=== PATIENT | female | born 1975 | race Caucasian/White ===

== ENCOUNTER 2020-09-04 08:28 | Emergency (ER) | payer MEDICARE, MEDICAID ==
[2020-09-04] MEDS ORDERED: DEXAMETHASONE 10 MG/ML VIAL PO STA (09:08)
[2020-09-04] MEDS ORDERED: CHERRY SYRUP 10 ML UDC PO ONE (09:08)
[2020-09-04] MEDS ORDERED: KETOROLAC 60 MG/2 ML VIAL IM STA (09:08)
[2020-09-04 10:04] VITALS: BP 108/58
--- NOTE | 2020-09-04 10:05 | XRAY Report ---
PROCEDURE: Knee 4 View RT INDICATIONS: locking/giving out/swelling TECHNIQUE: 4 views of the right knee(s) were acquired. COMPARISON: None. FINDINGS: Bones: No fractures or dislocations. No suspicious bony lesions. On the sunrise view, there is mil d osteophyte formation seen along the margins of the patella. Soft tissues: There is a small joint effusion. No suspicious soft tissue calcifications. IMPRESSION: Small joint effusion, without an acute bony abnormality seen. If there is strong clinical concern for internal derangement of the knee, please consider a dedicated , scheduled knee MRI for further evaluation (assuming that there is no contraindication). Reviewed by: Eugene Lu MD on 09/04/2020 9:04 AM NEL Approved by: Eugene Lu MD on 09/04/2020 9:04 AM NEL Station ID: [id number]
--- NOTE | 2020-09-04 10:34 | ED Physician Documentation ---
PD HPI LOWER EXT INJURY - Stated complaint Stated Complaint: RT KNEE PX - Chief complaint Chief Complaint: Ext Problem - History obtained from History obtained from: Patient, Family - History of Present Illness PD HPI LOW EXT INJURY LOCATION: Right, Knee Type of injury: Fall Where injury occurred: Home Timing - onset: How many weeks ago (2) Timing - duration: Weeks (2) Timing - details: Abrupt onset, Still present Improved by: Rest, Immobilization Worsened by: Moving, Palpating Associated symptoms: Swelling Contributing factors: Prior ortho surgery. No: Anticoagulated Similar symptoms before: Diagnosis (knee injury) Recently seen: Not recently seen - Additional information Additional information: 45-year-old female with a history of rheumatoid arthritis and a rheumatoid spine has peripheral neuropathy and injuries to her lower extremity secondary to her neuropathy resulting in an antalgic gait. 3 to 4 weeks ago the patient had a fall in her home injuring her right knee. She landed across the patella. Since that time she has had some difficulty walking she is noted some swelling to her knee and to her entire leg on the right side. She has pain with ambulation and standing and pain at rest. PD PAST MEDICAL HISTORY - Past Medical History Other Past Medical History: neuropathy - Past Surgical History Ortho: Spine surgery - Present Medications Home Medications: Ambulatory Orders Medication Instructions Recorded Confirmed HYDROcod/ACETAM 5/325 [[place] 5/325] 1 - 2 tablet PO Q6H PRN #14 tablet 09/04/20 Pregabalin [Lyrica] 1 tab PO TID 09/04/20 09/04/20 - Allergies Allergies/Adverse Reactions: Allergies Allergy/AdvReac Type Severity Reaction Status Date / Time No Known Drug Allergies Allergy Verified 09/04/20 08:44 - Social History Does the pt smoke?: Yes Smoking Status: Current every day smoker Does the pt drink ETOH?: Yes Does the pt have substance abuse?: No PD ED PE NORMAL - Vitals Vital signs reviewed: Yes (normal ) - General General: Alert and oriented X 3, No acute distress, Well developed/nourished - HEENT HEENT: Atraumatic, PERRL, EOMI - Respiratory Respiratory: No respiratory distress - Derm Derm: Normal color, Warm and dry, No rash - Extremities Extremities: No deformity, Other (There is swelling to the right leg in general this is mild but present. There is tenderness to palpation over the patella and the medial joint space. Ligaments are stable to testing. There is no palpable effusion. The range of motion is limited secondary to pain the distal n/v intact.) - Neuro Neuro: Alert and oriented X 3, teacher lip reading 2-12 intact, No motor deficit, No sensory deficit, Normal speech Eye Opening: Spontaneous Motor: Obeys Commands Verbal: Oriented GCS Score: 15 - Psych Psych: Normal mood, Normal affect Results - Vitals Vitals: Vital Signs - 24 hr 09/04/20 09/04/20 08:40 10:03 Temperature 36.6 C Heart Rate 94 65 Respiratory 16 16 Rate Blood Pressure 112/74 108/58 L O2 Saturation 96 99 Oxygen O2 Source Room air - Rads (name of study) knee R Radiology: Prelim report reviewed (Impression: Small joint effusion, without an acute bony abnormality seen.), EMP read indepedently, See rad report duplex viens right Radiology: Prelim report reviewed (Impression: No findings of deep venous thrombosis are seen.), EMP read indepedently, See rad report PD MEDICAL DECISION MAKING - ED course Complexity details: reviewed results, re-evaluated patient, considered differential, d/w patient, d/w family ED course: 45-year-old female disabled by rheumatoid arthritis of the spine has now fallen injured her right knee she has a joint effusion pain on weightbearing and a sensation of locking and giving away. Ligaments are stable to testing I suspect she may have meniscus injury and she is given a dose of dexamethasone and Toradol she is placed into a knee immobilizer and onto a walker and will have follow-up with orthopedics. Departure - Departure Disposition: 01 Home, Self Care Clinical Impression: Joint effusion of knee Qualifiers: Laterality: right Qualified Code(s): M25.461 - Effusion, right knee Condition: Stable Instructions: ED Meniscal Injury Knee Poss, ED Effusion Knee Follow-Up: Santana Enamorado MD [Provider Admit Priv/Credential] - Prescriptions: HYDROcod/ACETAM 5/325 [[place] 5/325] 1 - 2 tablet PO Q6H PRN #14 tablet PRN Reason: Pain Discharge Date/Time: 09/04/20 11:54
--- NOTE | 2020-09-04 12:18 | Ultrasound Report ---
PROCEDURE: Duplex Ext Veins Right INDICATIONS: swelling pain palpable vein TECHNIQUE: Real-time imaging, as well as color and pulse Doppler interrogation, were performed of the lower extr emity deep veins from the inguinal ligament to the popliteal fossa. COMPARISON: Correlation is made with the accompanying knee plain films, 09/04/2020. FINDINGS: The deep veins are normally compressible, and free of intraluminal thrombus. Color and pu lse Doppler demonstrate normal phasic intraluminal flow. There is normal augmentation response to di stal compression maneuver. IMPRESSION: No findings of deep venous thrombosis are seen. Note: Concordant preliminary findings given by the leak detection engineer upon the completion of the examination to Dr. Guy at 11:15 AM on 09/04/2020. Reviewed by: Eugene Lu MD on 09/04/2020 11:16 AM NEL Approved by: Eugene Lu MD on 09/04/2020 11:16 AM NEL Station ID: [id number]
== END 2020-09-04 11:54 | disposition home or self-care (01) ==
LOC: ED 08:28
DX: M25.561 Pain in right knee (principal); M25.461 Effusion, right knee; Z91.81 History of falling; M45.9 Ankylosing spondylitis of unspecified sites in spine; G62.9 Polyneuropathy, unspecified; F17.200 Nicotine dependence, unspecified, uncomplicated
CPT/HCPCS: 73564; 93971; 96372; 99281; 99283; A9270

== ENCOUNTER 2020-09-15 08:32 | Emergency (ER) | payer MEDICARE, MEDICAID ==
[2020-09-15] MEDS ORDERED: predniSONE 20 MG TABLET PO STA (10:15)
--- NOTE | 2020-09-15 10:17 | ED Physician Documentation ---
History of Present Illness - Stated complaint Stated Complaint: PX FINGERS RT/LT - Chief complaint Chief Complaint: Ext Problem - History obtained from History obtained from: Patient - Additonal information Additional information: Patient comes emergency department chief complaint of rheumatoid arthritis flare. She states that for the last several days, her fingers have been swollen and painful and she cannot bend or straighten them completely. Patient has a history of rheumatoid arthritis, and has been on a variety of medications in the past, including Remicade, but this was in [place] where she lived previously. Patient states she has moved here recently has not been able to yet get reestablished with primary care or rheumatology. No fevers or chills. No shortness of breath. No other complaints at this time. Review of Systems Ten Systems: 10 systems reviewed and negative Constitutional: reports: Reviewed and negative Eyes: reports: Reviewed and negative Ears: reports: Reviewed and negative Nose: reports: Reviewed and negative Throat: reports: Reviewed and negative Cardiac: reports: Reviewed and negative Respiratory: reports: Reviewed and negative GI: reports: Reviewed and negative : reports: Reviewed and negative Skin: reports: Reviewed and negative Musculoskeletal: reports: Joint pain, Joint swelling Neurologic: reports: Reviewed and negative Psychiatric: reports: Reviewed and negative Endocrine: reports: Reviewed and negative Immunocompromised: reports: Reviewed and negative PD PAST MEDICAL HISTORY - Past Medical History Past Medical History: Yes Cardiovascular: None Respiratory: None Neuro: Peripheral neuropathy Endocrine/Autoimmune: None GI: None NURSING PROFESSOR: None : None HEENT: None Psych: None Musculoskeletal: Chronic back pain, Other Derm: None - Past Surgical History Past Surgical History: Yes Ortho: Spine surgery, Other - Present Medications Home Medications: Ambulatory Orders Medication Instructions Recorded Confirmed HYDROcod/ACETAM 5/325 [[place] 5/325] 1 - 2 tablet PO Q6H PRN #10 tablet 09/15/20 predniSONE [Deltasone] 60 mg PO DAILY 5 Days #15 tablet 09/15/20 - Allergies Allergies/Adverse Reactions: Allergies Allergy/AdvReac Type Severity Reaction Status Date / Time No Known Drug Allergies Allergy Verified 09/15/20 08:48 - Social History Does the pt smoke?: Yes Smoking Status: Current every day smoker Does the pt drink ETOH?: Yes Does the pt have substance abuse?: No - Immunizations Immunizations are current?: Yes PD ED PE NORMAL - Vitals Vital signs reviewed: Yes - General General: Alert and oriented X 3, No acute distress - HEENT HEENT: Atraumatic, PERRL, EOMI, Moist mucous membranes - Neck Neck: Supple, no meningeal sign - Cardiac Cardiac: Strong equal pulses - Respiratory Respiratory: No respiratory distress - Derm Derm: Normal color, Warm and dry, No rash - Extremities Extremities: No deformity, Other (Moderately edematous fingers on right with limited range of motion. No edema of fingers on the left, but range of motion is limited. Enlargement of joints on bilateral fingers noted) - Neuro Neuro: Alert and oriented X 3 - Psych Psych: Normal mood, Normal affect Results - Vitals Vitals: Vital Signs - 24 hr 09/15/20 08:48 Temperature 36.5 C Heart Rate 63 Respiratory 16 Rate Blood Pressure 147/69 H O2 Saturation 99 Oxygen O2 Source Room air PD MEDICAL DECISION MAKING - ED course Complexity details: considered differential, d/w patient ED course: Patient was treated in the emergency department with prednisone. She was given prescriptions for prednisone and Vicodin as an outpatient. I have given her some options for both primary care and rheumatology in follow-up. Departure - Departure Disposition: 01 Home, Self Care Clinical Impression: Rheumatoid arthritis flare Condition: Stable Instructions: ED Arthritis Rheumatoid Prescriptions: predniSONE [Deltasone] 60 mg PO DAILY 5 Days #15 tablet HYDROcod/ACETAM 5/325 [[place] 5/325] 1 - 2 tablet PO Q6H PRN #10 tablet PRN Reason: Pain Discharge Date/Time: 09/15/20 10:17
[2020-09-15 10:48] VITALS: BP 139/76
== END 2020-09-15 10:17 | disposition home or self-care (01) ==
LOC: ED 08:32
DX: M06.9 Rheumatoid arthritis, unspecified (principal); F17.200 Nicotine dependence, unspecified, uncomplicated
CPT/HCPCS: 99282; 99284

== ENCOUNTER 2020-11-03 15:00 | Outpatient (CLI) | payer MEDICARE, MEDICAID | END 2020-11-03 23:59 | disposition home or self-care (01) | LOC: LAB.N 15:00 | PROVIDERS: ATTEND Family Medicine | DX: U07.1 COVID-19 (principal) | CPT/HCPCS: 87275; 87276; U0004 ==

== ENCOUNTER 2020-12-20 09:29 | Emergency (ER) | payer MEDICARE, MEDICAID ==
[2020-12-20 09:41] VITALS: BP 144/86
[2020-12-20] MEDS ORDERED: KETOROLAC 60 MG/2 ML VIAL IM STA (10:44)
--- NOTE | 2020-12-20 11:09 | XRAY Report ---
PROCEDURE: Knee 4 View RT INDICATIONS: GLF, rt knee pain TECHNIQUE: 4 views of the right knee(s) were acquired. COMPARISON: None. FINDINGS: Bones: No fractures or dislocations. No suspicious bony lesions. Soft tissues: Small suprapatellar joint effusion. No suspicious soft tissue calcifications. IMPRESSION: 1. No fracture. No acute osseous lesion. If there persistent symptoms or continued clinical concern f or pathology, then repeat plain film radiographs (7-10 days) or advanced imaging (CT, MR, bone scan) should be considered for further evaluation. 2. Small nonspecific joint effusion. Occult injury including ligamentous injury is not completely exc luded by this study. Reviewed by: Judie Bird MD, PhD on 12/20/2020 11:08 AM PDT Approved by: Judie Bird MD, PhD on 12/20/2020 11:08 AM PDT Station ID: [id number]
--- NOTE | 2020-12-20 11:12 | ED Physician Documentation ---
PD HPI LOWER EXT INJURY - Stated complaint Stated Complaint: RT KNEE INJURY - Chief complaint Chief Complaint: Trauma Ext - History obtained from History obtained from: Patient - History of Present Illness PD HPI LOW EXT INJURY LOCATION: Right, Knee Type of injury: Fall Where injury occurred: Home Timing - onset: How many days ago (3) Timing - duration: Days (3) Timing - details: Abrupt onset, Still present Improved by: Rest, Ice, Immobilization Worsened by: Moving, Palpating Associated symptoms: Swelling. 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 She is complaining of pain to the posterior aspect of her knee medially and she has been wearing a brace this has not been helping much with her ambulation. Review of Systems Constitutional: denies: Fever Eyes: denies: Decreased vision Ears: denies: Ear pain Nose: denies: Congestion Throat: denies: Sore throat Respiratory: denies: Cough PD PAST MEDICAL HISTORY - Past Medical History Past Medical History: Yes Cardiovascular: None Respiratory: None Neuro: Peripheral neuropathy Endocrine/Autoimmune: None GI: None MEDICAL RECORD ASSISTANT: None : None HEENT: None Psych: None Musculoskeletal: Rheumatoid arthritis, Chronic back pain Derm: None - Past Surgical History Past Surgical History: Yes Ortho: Spine surgery, Other - Present Medications Home Medications: Ambulatory Orders Medication Instructions Recorded Confirmed HYDROcod/ACETAM 5/325 [[place] 5/325] 1 - 2 tablet PO Q6H PRN #14 tablet 12/20/20 Pregabalin [Lyrica] 0 mg 12/20/20 inFLIXimab [Remicade] 0 mg 12/20/20 - Allergies Allergies/Adverse Reactions: Allergies Allergy/AdvReac Type Severity Reaction Status Date / Time No Known Drug Allergies Allergy Verified 12/20/20 09:41 - Social History Does the pt smoke?: Yes Smoking Status: Current every day smoker Does the pt drink ETOH?: Yes Does the pt have substance abuse?: No - Immunizations Immunizations are current?: Yes PD ED PE NORMAL - Vitals Vital signs reviewed: Yes (hypertensive) - General General: Alert and oriented X 3, No acute distress, Well developed/nourished - HEENT HEENT: Atraumatic, PERRL, EOMI - Respiratory Respiratory: No respiratory distress - Derm Derm: Normal color, Warm and dry, No rash - Extremities Extremities: No deformity, No edema, Other (There is tenderness to the medial joint line and posterior aspect of the knee on the right side. The ligaments are stable to testing and distal neurovascular components are intact. There is no pain to palpation of the patella and the patella is not ballotable) - Neuro Neuro: Alert and oriented X 3, yarn dyer 2-12 intact, No motor deficit, No sensory deficit, Normal speech Eye Opening: Spontaneous Motor: Obeys Commands Verbal: Oriented GCS Score: 15 - Psych Psych: Normal mood, Normal affect Results - Vitals Vitals: Vital Signs - 24 hr 12/20/20 09:39 Temperature 36.4 C L Heart Rate 80 Respiratory 14 Rate Blood Pressure 144/86 H O2 Saturation 97 Oxygen O2 Source Room air - Rads (name of study) R knee Radiology: Prelim report reviewed (Impression: 1. No fracture. No acute osseous lesion. Small nonspecific joint effusion. Occult injury including ligamentous injury is not completely excluded by this study.), EMP read indepedently, See rad report PD MEDICAL DECISION MAKING - ED course Complexity details: reviewed results, re-evaluated patient, considered differential, d/w patient ED course: 45-year-old female with a sprain of her right knee is placed into a knee immobilizer she is given Toradol here in the emergency department we will provide a short course of narcotic pain reliever. Departure - Departure Disposition: 01 Home, Self Care Clinical Impression: Knee injury Qualifiers: Encounter type: initial encounter Laterality: right Qualified Code(s): S89.91XA - Unspecified injury of right lower leg, initial encounter Condition: Stable Instructions: ED Sprain Knee Follow-Up: Wendi Ríos ARNP [Primary Care Provider] - Prescriptions: HYDROcod/ACETAM 5/325 [[place] 5/325] 1 - 2 tablet PO Q6H PRN #14 tablet PRN Reason: Pain Discharge Date/Time: 12/20/20 11:30
== END 2020-12-20 11:30 | disposition home or self-care (01) ==
LOC: ED 09:29
DX: S83.91XA Sprain of unspecified site of right knee, initial encounter (principal); W18.39XA Other fall on same level, initial encounter; Y93.F9 Activity, other caregiving; Y92.009 Unspecified place in unspecified non-institutional (private) residence as the place of occurrence of the external cause; M06.9 Rheumatoid arthritis, unspecified; F17.200 Nicotine dependence, unspecified, uncomplicated
CPT/HCPCS: 96372; 99283

== ENCOUNTER 2021-08-02 08:03 | Emergency (ER) | payer MEDICARE, MEDICAID ==
[2021-08-02] MEDS ORDERED: SODIUM CHLORIDE 0.9% 1,000 ML IV STA (08:31)
[2021-08-02] MEDS ORDERED: KETOROLAC 15 MG/ML VIAL IVP STA (08:31)
[2021-08-02] MEDS ORDERED: HYDROmorphone 1 MG/ML CARPUJECT IVP STA ×2 (08:31→10:58)
[2021-08-02] MEDS ORDERED: DEXAMETHASONE 10 MG/ML VIAL IVP STA (08:32)
[2021-08-02 08:51] LABS: BASOPHILS % (AUTO) 0.3 %; EOSINOPHILS % (AUTO) 4.1 %; HCT - HEMATOCRIT 30.9 % (37.0-47.0); HGB - HEMOGLOBIN 9.5 g/dL (12.0-16.0); LYMPHOCYTES % (AUTO) 24.5 %; MEAN CORPUSCULAR HEMOGLOBIN 24.5 pg (27.0-31.0); MEAN CORPUSCULAR HGB CONC 30.7 g/dL (32.0-36.0); MEAN CORPUSCULAR VOLUME 79.8 fL (81.0-99.0); MEAN PLATELET VOLUME 9.7 fL (7.9-10.8); MONOCYTES % (AUTO) 13.9 %; NEUTROPHILS % (AUTO) 56.9 %; PLT - PLATELET COUNT 291 10^3/uL (130-450); RED BLOOD COUNT 3.87 10^6/uL (4.20-5.40); RED CELL DISTRIBUTION WIDTH 17.5 % (12.0-15.0); WHITE BLOOD COUNT 3.9 x10^3/uL (4.8-10.8)
[2021-08-02 08:53] LABS: ABNORMAL LYMPHS % (MANUAL) 0 %
[2021-08-02 09:08] LABS: ALBUMIN/GLOBULIN RATIO 0.7 (1.0-2.2); BILIRUBIN,TOTAL 0.4 mg/dL (0.2-1.0); CALCIUM 8.5 mg/dL (8.5-10.3); CREATININE 0.7 mg/dL (0.4-1.0); CRP - C-REACTIVE PROTEIN 10.7 mg/dL (0-1.0); POTASSIUM 3.1 mmol/L (3.5-5.0); TOTAL PROTEIN 7.3 g/dL (6.7-8.2)
[2021-08-02 09:17] LABS: BAND NEUTROPHILS % (MANUAL) 10 %; DIFFERENTIAL COMMENT MANUAL DIFFERENTIAL; EOSINOPHILS # (MANUAL) 0.2 10^3/uL (0-0.7); LYMPHOCYTES # (MANUAL) 1.1 10^3/uL (1.5-3.5); LYMPHOCYTES % (MANUAL) 20 %; MONOCYTES # (MANUAL) 0.5 10^3/uL (0.0-1.0); NEUTROPHILS # (MANUAL) 2.1 10^3/uL (1.5-6.6); REACTIVE LYMPHS % (MANUAL) 8 %
[2021-08-02 09:44] LABS: B. PARAPERTUSSIS- RESP PCR PAN NOT DETECTED; B. PERTUSSIS- RESP PCR PANEL NOT DETECTED; C. PNEUMONIAE- RESP PCR PANEL NOT DETECTED; CORONAVIRUS 229E-RESP PCR NOT DETECTED; CORONAVIRUS HKU1-RESP PCR NOT DETECTED; CORONAVIRUS NL63-RESP PCR NOT DETECTED; CORONAVIRUS OC43-RESP PCR NOT DETECTED; HUMAN METAPNEUMOVIRUS NOT DETECTED; INFLUENZA A- RESP PCR PANEL NOT DETECTED; INFLUENZA B - RESP PCR PANEL NOT DETECTED; M. PNEUMONIAE- RESP PCR PANEL NOT DETECTED; PARAINFLUENZA VIRUS 1 NOT DETECTED; PARAINFLUENZA VIRUS 2 NOT DETECTED; PARAINFLUENZA VIRUS 3 NOT DETECTED; PARAINFLUENZA VIRUS 4 NOT DETECTED; RHINOVIRUS/ENTEROVIRUS NOT DETECTED; RSV- RESP PCR PANEL NOT DETECTED; SARS-CoV-2 -RESP PCR PANEL NOT DETECTED
[2021-08-02 11:41] LABS: BILIRUBIN,URINE NEGATIVE (NEGATIVE); GLUCOSE, URINE (UA) NEGATIVE (NEGATIVE); KETONES,URINE (UA) TRACE mg/dL (NEGATIVE); LEUKOCYTE ESTERASE, URINE SMALL (NEGATIVE); NITRITE,URINE POSITIVE (NEGATIVE); OCCULT BLOOD,URINE SMALL (NEGATIVE); PROTEIN,URINE TRACE mg/dL (NEGATIVE); UROBILINOGEN,URINE 1 (NORMAL) E.U./dL (NORMAL)
[2021-08-02 11:43] LABS: CLARITY,URINE CLOUDY (CLEAR)
[2021-08-02 11:49] LABS: WBC,URINE >25 /HPF (0-5)
[2021-08-02 11:50] LABS: BACTERIA,URINE Moderate /HPF (None Seen); RBC,URINE 0-5 /HPF (0-5); SQUAMOUS EPITHELIAL CELL,UR FEW Squamous (<= Few); WBC CLUMPS,URINE PRESENT
[2021-08-02] MEDS ORDERED: cefTRIAXone 1 GM VIAL IVP STA (12:44)
--- NOTE | 2021-08-02 12:44 | ED Physician Documentation ---
History of Present Illness - Stated complaint Stated Complaint: BODY PX - Chief complaint Chief Complaint: General - History obtained from History obtained from: Patient - History of Present Illness Timing: How many days ago (several) Severity Comments: she reports severe general body and joint pains for several days. No fevers Quality: aching pains in joints, mostly large joints, with swelling wrists and elbows, left more than right. Improved by: not Ibuprofen nor Tylenol. Worsened by: movement Associated symptoms: denies URI symptoms, duyspnea, chest pain, headache. No fevers. - Additonal information Additional information: history of rheumotid arthritis, and previously on Remicaid, before that methotrexate. [place] and has not been on any arthritis meds since moving. 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 Review of Systems Constitutional: reports: Myalgias. denies: Fever, Chills Nose: denies: Rhinorrhea / runny nose, Congestion Throat: denies: Sore throat Cardiac: denies: Chest pain / pressure, Palpitations, Pedal edema Respiratory: denies: Dyspnea, Cough GI: reports: Nausea. denies: Abdominal Pain, Vomiting, Diarrhea, Bloody / black stool : reports: Frequency. 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 : None HEENT: None Psych: None Musculoskeletal: Rheumatoid arthritis (severe, without recent medications (the past year)), Chronic back pain Derm: None - Past Surgical History Past Surgical History: Yes Ortho: Spine surgery, Other - Present Medications Home Medications: Ambulatory Orders Medication Instructions Recorded Confirmed Ferrous Sulfate 325 mg PO DAILY 30 Days #30 tab 08/02/21 HYDROcod/ACETAM 5/325 [[place] 5/325] 1 ea PO Q6H PRN #18 tablet 08/02/21 Ondansetron Odt [Zofran] 4 mg TL Q6H PRN #15 tablet 08/02/21 cephALEXin [Keflex] 500 mg PO TID #20 cap 08/02/21 dexAMETHasone [Decadron] 4 mg PO DAILY #10 tablet 08/02/21 - Allergies Allergies/Adverse Reactions: Allergies Allergy/AdvReac Type Severity Reaction Status Date / Time No Known Drug Allergies Allergy Verified 08/02/21 08:12 - Social History Does the pt smoke?: Yes Smoking Status: Current every day smoker Does the pt drink ETOH?: Yes Does the pt have substance abuse?: No - Immunizations Immunizations are current?: Yes PD ED PE NORMAL - Vitals Vital signs reviewed: Yes - General General: Alert and oriented X 3, Well developed/nourished, Other (appears in pain generally) - HEENT HEENT: Pharynx benign - Neck Neck: Supple, no meningeal sign, No adenopathy - Cardiac Cardiac: RRR, No murmur, No rub - Respiratory Respiratory: No respiratory distress, Clear bilaterally - Abdomen Abdomen: Normal bowel sounds, Soft, Non tender, Non distended - Derm Derm: Normal color, Warm and dry, No rash - Extremities Extremities: No calf tenderness / cord, Other (some edema in both wrists and elbows, left more than right. Swelling left hand/fingers. ). No: Normal ROM s pain (complains of pain with most joint movements. No redness, rash of joints. Mild warmth left wrist and elbow. small left bursal elbow effusions noted. ) - Neuro Neuro: Alert and oriented X 3, No motor deficit, Normal speech Eye Opening: Spontaneous Motor: Obeys Commands Verbal: Oriented GCS Score: 15 Results - Vitals Vitals: Vital Signs - 24 hr 08/02/21 08/02/21 08/02/21 08:13 10:32 11:47 Temperature 37.3 C Heart Rate 85 83 80 Respiratory 20 18 12 Rate Blood Pressure 160/75 H 121/63 O2 Saturation 99 93 95 08/02/21 13:00 Temperature 36.6 C Heart Rate 57 L Respiratory 18 Rate Blood Pressure 108/67 O2 Saturation 95 Oxygen O2 Source Room air - Labs Labs: Laboratory Tests 08/02/21 08/02/21 08/02/21 08:45 08:45 08:45 WBC 3.9 L RBC 3.87 L Hgb 9.5 L Hct 30.9 L MCV 79.8 L MCH 24.5 L MCHC 30.7 L RDW 17.5 H Plt Count 291 MPV 9.7 Neut # (Auto) Not Reportable Lymph # (Auto) Not Reportable [place] # (Auto) Not Reportable Eos # (Auto) Not Reportable Baso # (Auto) Not Reportable Absolute Nucleated RBC Not Reportable Total Counted 100 Band Neuts % (Manual) 10 Reactive Lymphs % (Man) 8 Abnorm Lymph % (Manual) 0 Nucleated RBC % Not Reportable Neutrophils # (Manual) 2.1 Lymphocytes # (Manual) 1.1 L Monocytes # (Manual) 0.5 Eosinophils # (Manual) 0.2 Basophils # (Manual) 0.0 Differential Comment MANUAL DIFFERENTIAL ESR 74 H Sodium 134 L Potassium 3.1 L Chloride 99 L Carbon Dioxide 26 Anion Gap 9.0 BUN 10 Creatinine 0.7 Estimated GFR (MDRD) 90 Glucose 147 H Calcium 8.5 Iron 24 L TIBC 374 % Saturation 6 L Transferrin 267 Total Bilirubin 0.4 AST 14 ALT 15 Alkaline Phosphatase 55 C-Reactive Protein 10.7 H Total Protein 7.3 Albumin 3.0 L Globulin 4.3 H Albumin/Globulin Ratio 0.7 L Lipase 31 Urine Color Urine Clarity Urine pH Ur Specific [place] Urine Protein Urine Glucose (UA) Urine Ketones Urine Occult Blood Urine Nitrite Urine Bilirubin Urine Urobilinogen Ur Leukocyte Esterase Urine RBC Urine WBC Urine WBC Clumps Ur Squamous Epith Cells Urine Bacteria Ur Microscopic Review Urine Culture Comments Nasal Adenovirus (PCR) Nasal B. parapertussis DNA (PCR) Nasal Coronavir 229E PCR Nasal Coronavir HKU1 PCR Nasal Coronavir NL63 PCR Nasal Coronavir OC43 PCR Nasal Enterovir/Rhinovir PCR Nasal Influenza B PCR Nasal Influenza A PCR Nasal Parainfluen 1 PCR Nasal Parainfluen 2 PCR Nasal Parainfluen 3 PCR Nasal Parainfluen 4 PCR Nasal RSV (PCR) Nasal B.pertussis DNA PCR Nasal C.pneumoniae (PCR) Hi Human Metapneumo PCR Nasal M.pneumoniae (PCR) Nasal SARS-CoV-2 (PCR) 08/02/21 08/02/21 08:45 11:34 WBC RBC Hgb Hct MCV MCH MCHC RDW Plt Count MPV Neut # (Auto) Lymph # (Auto) [place] # (Auto) Eos # (Auto) Baso # (Auto) Absolute Nucleated RBC Total Counted Band Neuts % (Manual) Reactive Lymphs % (Man) Abnorm Lymph % (Manual) Nucleated RBC % Neutrophils # (Manual) Lymphocytes # (Manual) Monocytes # (Manual) Eosinophils # (Manual) Basophils # (Manual) Differential Comment ESR Sodium Potassium Chloride Carbon Dioxide Anion Gap BUN Creatinine Estimated GFR (MDRD) Glucose Calcium Iron TIBC % Saturation Transferrin Total Bilirubin AST ALT Alkaline Phosphatase C-Reactive Protein Total Protein Albumin Globulin Albumin/Globulin Ratio Lipase Urine Color YELLOW Urine Clarity CLOUDY Urine pH 6.0 Ur Specific [place] 1.020 Urine Protein TRACE Urine Glucose (UA) NEGATIVE Urine Ketones TRACE Urine Occult Blood SMALL H Urine Nitrite POSITIVE H Urine Bilirubin NEGATIVE Urine Urobilinogen 1 (NORMAL) Ur Leukocyte Esterase SMALL H Urine RBC 0-5 Urine WBC >25 H Urine WBC Clumps PRESENT Ur Squamous Epith Cells FEW Squamous Urine Bacteria Moderate H Ur Microscopic Review INDICATED Urine Culture Comments INDICATED Nasal Adenovirus (PCR) NOT DETECTED Nasal B. parapertussis DNA (PCR) NOT DETECTED Nasal Coronavir 229E PCR NOT DETECTED Nasal Coronavir HKU1 PCR NOT DETECTED Nasal Coronavir NL63 PCR NOT DETECTED Nasal Coronavir OC43 PCR NOT DETECTED Nasal Enterovir/Rhinovir PCR NOT DETECTED Nasal Influenza B PCR NOT DETECTED Nasal Influenza A PCR NOT DETECTED Nasal Parainfluen 1 PCR NOT DETECTED Nasal Parainfluen 2 PCR NOT DETECTED Nasal Parainfluen 3 PCR NOT DETECTED Nasal Parainfluen 4 PCR NOT DETECTED Nasal RSV (PCR) NOT DETECTED Nasal B.pertussis DNA PCR NOT DETECTED Nasal C.pneumoniae (PCR) NOT DETECTED Hi Human Metapneumo PCR NOT DETECTED Nasal M.pneumoniae (PCR) NOT DETECTED Nasal SARS-CoV-2 (PCR) NOT DETECTED PD MEDICAL DECISION MAKING - ED course Complexity details: reviewed results (anemic, apparent iron deficient. No baseline labs as not had med care here on [facility]. ESR elevated. Does have UTI. Does not seem septic. ), re-evaluated patient (improved pain but still hurting for ROM main joints. Referred to Dr. Power/[facility] primary care as he is on referral listl for unassigned follow up this week. Can also try NIM. Will presume need primary care to get referral to water tanker driver for advanced RA care/meds. ), considered differential (general arthralgias and body aches. HIstory of rheumatoid, not on meds for a year. Presume flare of this, and will get labs/tests to eval for triggering event. ), d/w patient Departure - Departure Disposition: 01 Home, Self Care Clinical Impression: Generalized body aches, Rheumatoid arthritis flare, Hypokalemia UTI (urinary tract infection) Qualifiers: Urinary tract infection type: acute cystitis Hematuria presence: without hematuria Qualified Code(s): N30.00 - Acute cystitis without hematuria Anemia Qualifiers: Anemia type: iron deficiency Iron deficiency anemia type: unspecified iron deficiency Qualified Code(s): D50.9 - Iron deficiency anemia, unspecified Condition: Stable Record reviewed to determine appropriate education?: Yes Instructions: ED Arthritis Rheumatoid Follow-Up: [facility] [Provider Group] Phani Power MD [Provider Admit Priv/Credential] - Prescriptions: dexAMETHasone [Decadron] 4 mg PO DAILY #10 tablet Ferrous Sulfate 325 mg PO DAILY 30 Days #30 tab cephALEXin [Keflex] 500 mg PO TID #20 cap HYDROcod/ACETAM 5/325 [[place] 5/325] 1 ea PO Q6H PRN #18 tablet PRN Reason: Pain Ondansetron Odt [Zofran] 4 mg TL Q6H PRN #15 tablet PRN Reason: Nausea / Vomiting Comments: Your urine sample shows signs of a urinary tract infection. This may be a trig gurdeep for your flareup of your rheumatoid arthritis with the general body pains and joint pains. Cephalexin antibiotic as directed for the urinary tract infection. Decadron steroid daily as directed for treatment of the rheumatoid flareup. Add ondansetron if needed for nausea. Add Tylenol 4 times a day for pain or hydrocodone/acetaminophen if needed for worse pain. Try to obtain a local primary care. I provided the name of Dr. Hayes/[facility] primary care At. I also provided [facility]. Call and see if either place would have soon appointments for initiating primary care. Dr. Hayes is on our follow-up list for the ER for quick follow-ups. Let the office know that you were referred from the ER. You will need to obtain a primary care in order to get referral to a water tanker driver locally for further care of your rheumatoid. Hopefully the above medications will taper down your symptoms over the next several days to a week. You are also anemic and appears to be related to iron deficiency. Start an iron supplement as well. I transmitted your prescriptions to [email or web address] in [place]. I am prescribing a short course of narcotic pain medication for you. These are potentially dangerous and addictive medications that should be used carefully. These medications may constipate you. Take an ogrr-mrc-momhorr stool softener such as docusate twice daily with plenty of water while taking these medications. If you go 24 hours without a bowel movement, take [id number] MiraLAX, per package instructions. Do not drink or drive while taking these medications. If you received narcotic or sedating medications while in the emergency department do not drive for 24 hours. Store this medication in a safe, secure place and out of reach of children. It is a violation of federal law to give or sell this medication to another person or to use in a manner other than prescribed. The ED will not refill narcotic prescriptions, including prescriptions lost or stolen. You can dispose of unwanted medications at the [facility]'s office or at several pharmacies such as [facility]. Discharge Date/Time: 08/02/21 13:40
[2021-08-02 13:37] VITALS: BP 108/67
== END 2021-08-02 13:40 | disposition home or self-care (01) ==
LOC: ED 08:03
DX: M06.9 Rheumatoid arthritis, unspecified (principal); N30.00 Acute cystitis without hematuria; D50.9 Iron deficiency anemia, unspecified; E87.6 Hypokalemia; F17.200 Nicotine dependence, unspecified, uncomplicated
CPT/HCPCS: 36415; 80053; 81001; 83540; 83690; 84466; 85025; 85651; 86140; 87086; 87181; 87633; 96361; 96374; 96375; 96376; 99284; J1170; 81003

== ENCOUNTER 2021-09-07 16:36 | Outpatient (CLI) | payer MEDICARE, MEDICAID | END 2021-09-07 16:37 | disposition critical access hospital (66) | LOC: EMS 16:36 | DX: R51.9 Headache, unspecified (principal); H57.11 Ocular pain, right eye; H53.9 Unspecified visual disturbance | CPT/HCPCS: A0425; A0429 ==

== ENCOUNTER 2021-09-07 16:59 | Emergency (ER) | payer MEDICARE, MEDICAID ==
[2021-09-07] MEDS ORDERED: SODIUM CHLORIDE 0.9% 1,000 ML IV STA ×2 (17:11→21:17)
[2021-09-07] MEDS ORDERED: HYDROmorphone 1 MG/ML CARPUJECT IVP STA ×2 (17:11→18:29)
[2021-09-07] MEDS ORDERED: METOCLOPRAMIDE 10 MG/2 ML VIAL IVP STA (17:11)
[2021-09-07] MEDS ORDERED: VANCOMYCIN INJ 2 GM in SODIUM CHLORIDE 0.9% 500 ML IV STA (17:19)
[2021-09-07] MEDS ORDERED: cefTRIAXone 2 GM in SODIUM CHLORIDE 0.9% MINIBAG 100 ML IV STA (17:19)
--- NOTE | 2021-09-07 17:22 | ED Physician Documentation ---
PD HPI OPHTHO - Stated complaint Stated Complaint: HEADACHE - Chief complaint Chief Complaint: Heent - History obtained from History obtained from: Patient - Additional information Additional information: 46-year-old woman with his history of severe rheumatoid arthritis, tobacco abuse presents with headache and vision loss. States that about a week and half ago, 2 Sundays ago, she was scratched in the eye while playing Frisbee. She was doing fine up until about 3 to 4 days ago when she started develop vision loss and increasing headache. She is light sensitive and the headache is otherwise similar to her usual migraines with gradual onset, light sensitivity. She also is complaining of a lot of joint pain. 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 : None HEENT: None Psych: None Musculoskeletal: Rheumatoid arthritis (severe, without recent medications (the past year)), Chronic back pain Derm: None - Past Surgical History Past Surgical History: Yes Ortho: Spine surgery, Other - Present Medications Home Medications: Ambulatory Orders Medication Instructions Recorded Confirmed Ferrous Sulfate 325 mg PO DAILY 30 Days #30 tab 08/02/21 HYDROcod/ACETAM 5/325 [[place] 5/325] 1 ea PO Q6H PRN #18 tablet 08/02/21 Ondansetron Odt [Zofran] 4 mg TL Q6H PRN #15 tablet 08/02/21 cephALEXin [Keflex] 500 mg PO TID #20 cap 08/02/21 dexAMETHasone [Decadron] 4 mg PO DAILY #10 tablet 08/02/21 - Allergies Allergies/Adverse Reactions: Allergies Allergy/AdvReac Type Severity Reaction Status Date / Time No Known Drug Allergies Allergy Verified 09/07/21 17:13 - Social History Does the pt smoke?: Yes Smoking Status: Current every day smoker Does the pt drink ETOH?: Yes Does the pt have substance abuse?: No - Immunizations Immunizations are current?: Yes PD ED PE NORMAL - Vitals Vital signs reviewed: Yes - General General: Alert and oriented X 3, Other (Appears uncomfortable and photophobic) - HEENT HEENT: EOMI, Other (Lids are slightly swollen especially upper, on the right she has injected edematous conjunctive a and a severe amount of purulent material in the anterior chamber. Surprisingly she can read fingers at 2 feet, but she cannot read even the top line on the eye chart. Right eye Aquiles-Pen is 27. ) - Neck Neck: Supple, no meningeal sign, No bony TTP - Cardiac Cardiac: RRR, No murmur - Respiratory Respiratory: No respiratory distress, Clear bilaterally - Abdomen Abdomen: Normal bowel sounds, Soft, Non tender - Back Back: No CVA TTP, No spinal TTP - Derm Derm: Normal color, Warm and dry - Extremities Extremities: Other (Many swollen joints especially the right wrist and elbow with decreased range of motion at all. Fingers are also tender and swollen.) - Neuro Neuro: Alert and oriented X 3, No motor deficit, No sensory deficit, Normal speech Eye Opening: Spontaneous Motor: Obeys Commands Verbal: Oriented GCS Score: 15 Results - Vitals Vitals: Vital Signs - 24 hr 09/07/21 17:05 Temperature 37.6 C Heart Rate 77 Respiratory 16 Rate Blood Pressure 152/92 H O2 Saturation 98 Oxygen O2 Source Room air - Labs Labs: Microbiology 09/07/21 17:35 Eye Culture - Preliminary Eye - Right Laboratory Tests 09/07/21 09/07/21 09/07/21 17:40 17:41 18:10 WBC 4.9 RBC 4.26 Hgb 10.2 L Hct 33.5 L MCV 78.6 L MCH 23.9 L MCHC 30.4 L RDW 16.6 H Plt Count 311 MPV 9.5 Neut # (Auto) 3.3 Lymph # (Auto) 1.0 L [place] # (Auto) 0.5 Eos # (Auto) 0.2 Baso # (Auto) 0.0 Absolute Nucleated RBC 0.00 Nucleated RBC % 0.0 PT 13.5 H INR 1.2 Sodium Potassium Chloride Carbon Dioxide Anion Gap BUN Creatinine Estimated GFR (MDRD) Glucose Calcium SARS-CoV-2 (PCR) NOT DETECTED 09/07/21 18:10 WBC RBC Hgb Hct MCV MCH MCHC RDW Plt Count MPV Neut # (Auto) Lymph # (Auto) [place] # (Auto) Eos # (Auto) Baso # (Auto) Absolute Nucleated RBC Nucleated RBC % PT INR Sodium 135 Potassium 4.0 Chloride 101 Carbon Dioxide 26 Anion Gap 8.0 BUN 13 Creatinine 0.7 Estimated GFR (MDRD) 90 Glucose 129 H Calcium 8.5 SARS-CoV-2 (PCR) - Rads (name of study) CT Head Radiology: EMP read contemporaneously (NAD) PD MEDICAL DECISION MAKING - ED course ED course: 46-year-old woman presents with gradual onset headache and joint pain but the most pressing issue is it looks like she has traumatic endophthalmitis of the right eye. She has a severe revision deficit. She was attended to immediately and pain control ordered. Given that we do not have ophthalmology she will need to be transferred, to temporize matters I am giving her IV Rocephin and vancomycin as well as topical tobramycin. Accepted to [facility] at 710pm by Dr Jn Brooks. Departure - Departure Disposition: 02 Transfer Acute Care Hosp Clinical Impression: Endophthalmitis, acute, Acute rheumatic arthritis, Headache Condition: Serious
[2021-09-07] MEDS ORDERED: PROPARACAINE 0.5% OPHTH DROPS 15 ML RIGHTEYE STA (17:28)
[2021-09-07] MEDS ORDERED: VANCOMYCIN 1 GM VIAL ONE (17:49)
[2021-09-07] MEDS ORDERED: cefTRIAXone 2 GM VIAL ONE (17:49)
[2021-09-07 17:53] LABS: BASOPHILS % (AUTO) 0.2 %; EOSINOPHILS # (AUTO) 0.2 10^3/uL (0.0-0.7); EOSINOPHILS % (AUTO) 3.3 %; HCT - HEMATOCRIT 33.5 % (37.0-47.0); HGB - HEMOGLOBIN 10.2 g/dL (12.0-16.0); LYMPHOCYTES % (AUTO) 19.4 %; MEAN CORPUSCULAR HEMOGLOBIN 23.9 pg (27.0-31.0); MEAN CORPUSCULAR HGB CONC 30.4 g/dL (32.0-36.0); MEAN CORPUSCULAR VOLUME 78.6 fL (81.0-99.0); MEAN PLATELET VOLUME 9.5 fL (7.9-10.8); MONOCYTES # (AUTO) 0.5 10^3/uL (0.0-1.0); NEUTROPHILS # (AUTO) 3.3 10^3/uL (1.5-6.6); NEUTROPHILS % (AUTO) 66.9 %; PLT - PLATELET COUNT 311 10^3/uL (130-450); RED BLOOD COUNT 4.26 10^6/uL (4.20-5.40); RED CELL DISTRIBUTION WIDTH 16.6 % (12.0-15.0); WHITE BLOOD COUNT 4.9 x10^3/uL (4.8-10.8)
--- NOTE | 2021-09-07 18:01 | CT Report ---
PROCEDURE: HEAD WO INDICATIONS: headahe, R eye pain TECHNIQUE: Noncontrast 4.5 mm thick angled axial sections acquired from the foramen magnum to the vertex. For r adiation dose reduction, the following was used: automated exposure control, adjustment of mA and/or kV according to patient size. COMPARISON: None. FINDINGS: Image quality: Excellent. CSF spaces: Basal cisterns are patent. No extra-axial fluid collections. Ventricles are normal in size and shape. Brain: No midline shift. No intracranial masses or hemorrhage. Romero-white matter interface is norm al. Cavum septum pellucidum is incidentally noted. Skull and face: Calvarium and visualized facial bones are intact, without suspicious lesions. Sinuses: Visualized sinuses demonstrate mild scattered areas of mucosal thickening within the ethmoi d sinuses. IMPRESSION: 1. No acute intracranial process. Reviewed by: Evelyn Herman MD on 09/07/2021 5:59 PM PDT Approved by: Evelyn Herman MD on 09/07/2021 5:59 PM PDT Station ID: [id number]
[2021-09-07] MEDS: TOBRAMYCIN 0.3% OPHTH DROPS 5 ML RIGHTEYE SCH ×2 (18:08→19:40)
[2021-09-07 18:25] LABS: INR 1.2 (0.8-1.2); PT - PROTHROMBIN TIME 13.5 secs (9.9-12.6)
[2021-09-07 18:26] LABS: CALCIUM 8.5 mg/dL (8.5-10.3); CREATININE 0.7 mg/dL (0.4-1.0)
[2021-09-07 21:25] VITALS: BP 163/85
== END 2021-09-07 21:29 | disposition short-term general hospital (02) ==
LOC: EDUNIT# → ED 16:59
DX: H44.001 Unspecified purulent endophthalmitis, right eye (principal); M06.9 Rheumatoid arthritis, unspecified; R51.9 Headache, unspecified; Z72.0 Tobacco use; H54.7 Unspecified visual loss; Z20.822 Contact with and (suspected) exposure to COVID-19
CPT/HCPCS: 36415; 70450; 80048; 85025; 85610; 87070; 87181; 87635; 96365; 96375; 99285; A9270; J1170; J2765; J3370; J3490

== ENCOUNTER 2021-09-30 18:45 | Emergency (ER) | payer MEDICARE, MEDICAID ==
[2021-09-30] MEDS ORDERED: MORPHINE 2 MG/ML CARPUJECT IVP STA (19:25)
[2021-09-30] MEDS ORDERED: TOBRAMYCIN 0.3% OPHTH DROPS 5 ML RIGHTEYE STA (19:25)
--- NOTE | 2021-09-30 19:27 | ED Physician Documentation ---
PD HPI HEENT - Stated complaint Stated Complaint: OPEN WOUND - Chief complaint Chief Complaint: Heent - History obtained from History obtained from: Patient - Additional information Additional information: 46-year-old woman who I sent to [facility] on September 07 for endophthalmitis. 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 She went to an outpatient senior manager today and she was told that her stitches were coming loose and to go to [facility]. She presents here as she had does not have transportation. She is blind in that eye now. 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 : None HEENT: None Psych: None Musculoskeletal: Rheumatoid arthritis (severe, without recent medications (the past year)), Chronic back pain Derm: None - Past Surgical History Past Surgical History: Yes Ortho: Spine surgery, Other - Present Medications Home Medications: Ambulatory Orders Medication Instructions Recorded Confirmed Ferrous Sulfate 325 mg PO DAILY 30 Days #30 tab 08/02/21 HYDROcod/ACETAM 5/325 [[place] 5/325] 1 ea PO Q6H PRN #18 tablet 08/02/21 Ondansetron Odt [Zofran] 4 mg TL Q6H PRN #15 tablet 08/02/21 cephALEXin [Keflex] 500 mg PO TID #20 cap 08/02/21 dexAMETHasone [Decadron] 4 mg PO DAILY #10 tablet 08/02/21 - Allergies Allergies/Adverse Reactions: Allergies Allergy/AdvReac Type Severity Reaction Status Date / Time No Known Drug Allergies Allergy Verified 09/30/21 18:50 - Social History Does the pt smoke?: Yes Smoking Status: Current every day smoker Does the pt drink ETOH?: Yes Does the pt have substance abuse?: No - Immunizations Immunizations are current?: Yes PD ED PE NORMAL - Vitals Vital signs reviewed: Yes - General General: Alert and oriented X 3, No acute distress - HEENT HEENT: Other (Opacified anterior chamber, cannot see hand motion at all on the right.) - Neck Neck: Supple, no meningeal sign, No bony TTP - Cardiac Cardiac: RRR, No murmur - Respiratory Respiratory: No respiratory distress, Clear bilaterally - Abdomen Abdomen: Normal bowel sounds, Soft, Non tender - Back Back: No CVA TTP, No spinal TTP - Derm Derm: Normal color, Warm and dry - Extremities Extremities: No deformity, No tenderness to palpate - Neuro Neuro: Alert and oriented X 3, Normal speech - Psych Psych: Normal mood, Normal affect Results - Vitals Vitals: Vital Signs - 24 hr 09/30/21 09/30/21 09/30/21 18:50 18:54 20:09 Temperature 36.5 C Heart Rate 85 71 68 Respiratory 16 16 18 Rate Blood Pressure 138/80 H 122/78 123/82 H O2 Saturation 98 100 100 09/30/21 09/30/21 09/30/21 20:34 21:00 21:09 Temperature Heart Rate 68 66 68 Respiratory 16 16 18 Rate Blood Pressure 123/79 126/82 H 126/82 H O2 Saturation 100 98 100 09/30/21 09/30/21 21:50 21:57 Temperature Heart Rate 71 76 Respiratory 18 16 Rate Blood Pressure 126/72 124/63 O2 Saturation 100 98 Oxygen O2 Source Room air - Labs Labs: Laboratory Tests 09/30/21 09/30/21 09/30/21 19:38 19:38 19:41 WBC 2.9 L RBC 4.25 Hgb 10.0 L Hct 33.4 L MCV 78.6 L MCH 23.5 L MCHC 29.9 L RDW 17.2 H Plt Count 192 MPV 9.9 Neut # (Auto) 1.2 L Lymph # (Auto) 1.3 L [place] # (Auto) 0.3 Eos # (Auto) 0.1 Baso # (Auto) 0.0 Absolute Nucleated RBC 0.00 Total Counted DRAW FIRE 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 Band Neuts % (Manual) Not Reportable Abnorm Lymph % (Manual) Not Reportable Nucleated RBC % 0.0 Neutrophils # (Manual) Not Reportable Lymphocytes # (Manual) Not Reportable Monocytes # (Manual) Not Reportable Eosinophils # (Manual) Not Reportable Basophils # (Manual) Not Reportable Differential Comment MANUAL=AUTO DIFF Manual Slide Review Indicated WBC Morphology NORMAL APPEARANCE Platelet Estimate NORMAL (130-450,000) Platelet Morphology NORMAL APPEARANCE RBC Morph Micro Appear 1+ ANISOCYTOSIS Sodium 135 Potassium 3.3 L Chloride 102 Carbon Dioxide 23 Anion Gap 10.0 BUN 11 Creatinine 0.8 Estimated GFR (MDRD) 77 L Glucose 100 Calcium 8.7 SARS-CoV-2 (PCR) DETECTED A PD MEDICAL DECISION MAKING - ED course ED course: 46-year-old woman presents with known endophthalmitis. She is accompanied by paperwork from the outpatient senior manager she saw today. She is Dr. Nemesio Hylton in [place]. Diagnosis was corneal ulcer, perforated, right with endophthalmitis, BCL in place. Paperwork that accompanies her notes "That she was unable to take her drops for a few days and get new drops. There is an apparent corneal melt with likely perforation suspicious area of cornea/superiorly with loose sutures. Kae negative at this time. Recommend going to [facility] for further evaluation and treatment." [facility] was called after initial evaluation. They are on high census and it will be "a few hours" before they were able to respond I presented the case to the transfer center nurse. He will page ophthalmology. Care to overnight emergency physician pending that response. She was found to be positive for COVID here and has had a dry cough and headache since yesterday. Departure - Departure Disposition: 02 Transfer Acute Care Hosp Clinical Impression: COVID-19 Endophthalmitis, acute Qualifiers: Laterality: right Qualified Code(s): H44.001 - Unspecified purulent endophthalmitis, right eye Condition: Fair
[2021-09-30 20:03] LABS: BASOPHILS % (AUTO) 0.3 %; EOSINOPHILS # (AUTO) 0.1 10^3/uL (0.0-0.7); EOSINOPHILS % (AUTO) 2.4 %; HCT - HEMATOCRIT 33.4 % (37.0-47.0); LYMPHOCYTES # (AUTO) 1.3 10^3/uL (1.5-3.5); LYMPHOCYTES % (AUTO) 45.3 %; MEAN CORPUSCULAR HEMOGLOBIN 23.5 pg (27.0-31.0); MEAN CORPUSCULAR HGB CONC 29.9 g/dL (32.0-36.0); MEAN CORPUSCULAR VOLUME 78.6 fL (81.0-99.0); MEAN PLATELET VOLUME 9.9 fL (7.9-10.8); MONOCYTES # (AUTO) 0.3 10^3/uL (0.0-1.0); MONOCYTES % (AUTO) 9.7 %; NEUTROPHILS # (AUTO) 1.2 10^3/uL (1.5-6.6); NEUTROPHILS % (AUTO) 42.3 %; PLT - PLATELET COUNT 192 10^3/uL (130-450); RED BLOOD COUNT 4.25 10^6/uL (4.20-5.40); RED CELL DISTRIBUTION WIDTH 17.2 % (12.0-15.0); WHITE BLOOD COUNT 2.9 x10^3/uL (4.8-10.8)
[2021-09-30 20:05] LABS: SLIDE REVIEW? Indicated
[2021-09-30 20:09] LABS: CALCIUM 8.7 mg/dL (8.5-10.3); CREATININE 0.8 mg/dL (0.4-1.0); POTASSIUM 3.3 mmol/L (3.5-5.0)
[2021-09-30 20:27] LABS: PLATELET ESTIMATE, MANUAL NORMAL (130-450,000) (NORMAL); PLATELET MORPHOLOGY NORMAL APPEARANCE (NORMAL); RBC MORPHOLOGY (MULTIPLE) 1+ ANISOCYTOSIS (NORMAL); WBC MORPHOLOGY (MULTIPLE) NORMAL APPEARANCE (NORMAL)
[2021-09-30 20:28] LABS: DIFFERENTIAL COMMENT MANUAL=AUTO DIFF
[2021-09-30] MEDS ORDERED: TOBRAMYCIN 0.3% OPHTH DROPS 5 ML RIGHTEYE SCH (22:00)
[2021-09-30 22:50] VITALS: BP 128/80
== END 2021-09-30 22:51 | disposition short-term general hospital (02) ==
LOC: ED 18:45
DX: H44.001 Unspecified purulent endophthalmitis, right eye (principal); U07.1 COVID-19; F17.200 Nicotine dependence, unspecified, uncomplicated
CPT/HCPCS: 36415; 80048; 85025; 87635; 96374; 99281; 99285; A9270

== ENCOUNTER 2022-05-15 11:38 | Emergency (ER) | payer MEDICARE, MEDICAID ==
[2022-05-15] MEDS ORDERED: MORPHINE 2 MG/ML CARPUJECT IVP STA (12:47)
--- NOTE | 2022-05-15 12:50 | ED Physician Documentation ---
PD HPI OPHTHO - Stated complaint Stated Complaint: RT EYE INJ/POST SURGERY - Chief complaint Chief Complaint: Heent - History obtained from History obtained from: Patient - History of Present Illness Timing - onset: Today Pain level max: 5 Pain level now: 5 Location: Right - Additional information Additional information: Patient is a 46-year-old female who presents to the emergency department with redness and swelling to the right eye. Drainage from the right eye today as well. 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 She states she has never regained any vision in that eye. No fevers. No chills. No vomiting. She is complaining of pain to the eye today. States that it worsened today. She states that she is not on any medications at home currently. No eyedrops currently. 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 : None HEENT: None Psych: None Musculoskeletal: Rheumatoid arthritis, Chronic back pain Derm: None - Past Surgical History Past Surgical History: Yes Ortho: Spine surgery, Other - Present Medications Home Medications: Ambulatory Orders Medication Instructions Recorded Confirmed Ferrous Sulfate 325 mg PO DAILY 30 Days #30 tab 08/02/21 HYDROcod/ACETAM 5/325 [[place] 5/325] 1 ea PO Q6H PRN #18 tablet 08/02/21 Ondansetron Odt [Zofran] 4 mg TL Q6H PRN #15 tablet 08/02/21 cephALEXin [Keflex] 500 mg PO TID #20 cap 08/02/21 dexAMETHasone [Decadron] 4 mg PO DAILY #10 tablet 08/02/21 - Allergies Allergies/Adverse Reactions: Allergies Allergy/AdvReac Type Severity Reaction Status Date / Time No Known Drug Allergies Allergy Verified 05/15/22 11:56 - Social History Does the pt smoke?: Yes Smoking Status: Current every day smoker Does the pt drink ETOH?: Yes Does the pt have substance abuse?: No - Immunizations Immunizations are current?: Yes - POLST Patient has POLST: No PD ED PE NORMAL - Vitals Vital signs reviewed: Yes - General General: Alert and oriented X 3, No acute distress - HEENT HEENT: Moist mucous membranes, Other (Patient with a very injected conjunctiva. Clouding of the cornea. No vision in the right eye. Left eye is normal.) - Neck Neck: Supple, no meningeal sign - Cardiac Cardiac: RRR - Respiratory Respiratory: No respiratory distress, Clear bilaterally - Derm Derm: Warm and dry - Neuro Neuro: Alert and oriented X 3 Results - Vitals Vitals: Vital Signs - 24 hr 05/15/22 05/15/22 05/15/22 11:53 11:55 12:25 Temperature 37.0 C 37.0 C Heart Rate 93 93 96 Respiratory 16 16 16 Rate Blood Pressure 97/77 97/77 150/89 H O2 Saturation 100 100 98 05/15/22 05/15/22 12:30 13:00 Temperature Heart Rate 78 76 Respiratory 18 16 Rate Blood Pressure 140/80 H 152/81 H O2 Saturation 96 100 Oxygen O2 Source Room air - Labs Labs: Laboratory Tests 05/15/22 05/15/22 05/15/22 12:46 12:46 12:46 WBC 3.5 L RBC 4.24 Hgb 9.0 L Hct 31.0 L MCV 73.1 L MCH 21.2 L MCHC 29.0 L RDW 16.6 H Plt Count 269 MPV 8.9 Neut # (Auto) 1.7 Lymph # (Auto) 1.2 L [place] # (Auto) 0.3 Eos # (Auto) 0.3 Baso # (Auto) 0.0 Absolute Nucleated RBC 0.00 Nucleated RBC % 0.0 ESR 45 H Sodium 138 Potassium 4.2 Chloride 106 Carbon Dioxide 24 Anion Gap 8.0 BUN 15 Creatinine 0.8 Estimated GFR (MDRD) 77 L Glucose 102 H Calcium 9.1 C-Reactive Protein 1.0 PD Medical Decision Making - ED course Complexity details: reviewed results, re-evaluated patient, considered differential, d/w patient ED course: Patient with what appears to be endophthalmitis. Discussed the case with Dr. Sara Park, ophthalmology from [facility]. Graciously excepts to the [facility] emergency department. Recommends Rocephin and vancomycin. Patient will be transferred via BLS. COBRA forms completed. This document was made in part using voice recognition software. While efforts are made to proofread this document, sound alike and grammatical errors may occur. 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
[2022-05-15 12:51] LABS: BASOPHILS % (AUTO) 0.6 %; EOSINOPHILS # (AUTO) 0.3 10^3/uL (0.0-0.7); EOSINOPHILS % (AUTO) 8.9 %; LYMPHOCYTES # (AUTO) 1.2 10^3/uL (1.5-3.5); LYMPHOCYTES % (AUTO) 33.1 %; MEAN CORPUSCULAR HEMOGLOBIN 21.2 pg (27.0-31.0); MEAN CORPUSCULAR VOLUME 73.1 fL (81.0-99.0); MEAN PLATELET VOLUME 8.9 fL (7.9-10.8); MONOCYTES # (AUTO) 0.3 10^3/uL (0.0-1.0); MONOCYTES % (AUTO) 8.9 %; NEUTROPHILS # (AUTO) 1.7 10^3/uL (1.5-6.6); NEUTROPHILS % (AUTO) 48.2 %; PLT - PLATELET COUNT 269 10^3/uL (130-450); RED BLOOD COUNT 4.24 10^6/uL (4.20-5.40); RED CELL DISTRIBUTION WIDTH 16.6 % (12.0-15.0); WHITE BLOOD COUNT 3.5 x10^3/uL (4.8-10.8)
[2022-05-15 13:07] LABS: CALCIUM 9.1 mg/dL (8.5-10.3); CREATININE 0.8 mg/dL (0.4-1.0); POTASSIUM 4.2 mmol/L (3.5-5.0)
[2022-05-15] MEDS ORDERED: cefTRIAXone 1 GM VIAL IVP STA (13:18)
[2022-05-15] MEDS ORDERED: VANCOMYCIN INJ 1 GM in SODIUM CHLORIDE 0.9% 500 ML IV STA (13:18)
[2022-05-15] MEDS ORDERED: VANCOMYCIN INJ 1 GM in SODIUM CHLORIDE 0.9% 250 ML IV STA (13:24)
[2022-05-15 15:33] VITALS: BP 112/80
== END 2022-05-15 15:35 | disposition short-term general hospital (02) ==
LOC: ED 11:38
DX: H44.001 Unspecified purulent endophthalmitis, right eye (principal); F17.200 Nicotine dependence, unspecified, uncomplicated; Z20.822 Contact with and (suspected) exposure to COVID-19
CPT/HCPCS: 36415; 80048; 85025; 85651; 86140; 87635; 96365; 96366; 96375; 99284; 99285; J3370

== ENCOUNTER 2022-07-11 05:23 | Emergency (ER) | payer MEDICARE, MEDICAID ==
[2022-07-11] MEDS ORDERED: KETOROLAC 30 MG/ML VIAL IM STA (05:53)
[2022-07-11] MEDS ORDERED: oxyCODONE/ACET 5/325 Prepack 4 PO STA (05:53)
--- NOTE | 2022-07-11 05:57 | ED Physician Documentation ---
PD HPI HEENT - Stated complaint Stated Complaint: JAW PX - Chief complaint Chief Complaint: Heent - History obtained from History obtained from: Patient - Additional information Additional information: 46-year-old woman with history of TMJ presents with right jaw pain upon waking this morning. She has had pain upon waking the past couple mornings. Denies fever, dental pain, swelling or other issues. Able to swallow. Pain worsens with drinking cold water. Review of Systems Throat: reports: Other (Right jawline pain). 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 : None HEENT: None Psych: None Musculoskeletal: Rheumatoid arthritis, Chronic back pain Derm: None - Past Surgical History Past Surgical History: Yes Ortho: Spine surgery, Other - Present Medications Home Medications: Ambulatory Orders Medication Instructions Recorded Confirmed Ferrous Sulfate 325 mg PO DAILY 30 Days #30 tab 08/02/21 HYDROcod/ACETAM 5/325 [[place] 5/325] 1 ea PO Q6H PRN #18 tablet 08/02/21 Ondansetron Odt [Zofran] 4 mg TL Q6H PRN #15 tablet 08/02/21 cephALEXin [Keflex] 500 mg PO TID #20 cap 08/02/21 dexAMETHasone [Decadron] 4 mg PO DAILY #10 tablet 08/02/21 - Allergies Allergies/Adverse Reactions: Allergies Allergy/AdvReac Type Severity Reaction Status Date / Time No Known Drug Allergies Allergy Verified 07/11/22 05:34 - Social History Does the pt smoke?: Yes Smoking Status: Current every day smoker Does the pt drink ETOH?: Yes Does the pt have substance abuse?: No - Immunizations Immunizations are current?: Yes - POLST Patient has POLST: No PD ED PE NORMAL - Vitals Vital signs reviewed: Yes - General General: Alert and oriented X 3, No acute distress, Well developed/nourished - HEENT HEENT: Atraumatic, PERRL, EOMI, Ears normal (R ear occluded with cerumen), Moist mucous membranes, Other (Right molar avulsed tooth. Nontender to palpation. Right mandible ttp) Results - Vitals Vitals: Vital Signs - 24 hr 07/11/22 05:31 Temperature 35.1 C L Heart Rate 95 Respiratory 15 Rate Blood Pressure 139/86 H O2 Saturation 100 Oxygen O2 Source Room air PD Medical Decision Making - ED course ED course: 46-year-old woman presents with recurrent TMJ. Symptomatic care provided and emergency referral to OMFS given.Return precautions given. Departure - Departure Disposition: 01 Home, Self Care Clinical Impression: TMJ (temporomandibular joint syndrome) Condition: Stable Instructions: TMD Self Care, ED TMJ Syndrome Follow-Up: FREDIS VARGAS [Physician No Access] - Comments: You were seen in the emergency department for evaluation of jaw pain. This is likely TMJ acting up. Please follow-up with emergency dental/facial specialist Dr. Fredis Vargas. Return to the emergency department for new or worsening symptoms or other concerns.
[2022-07-11 06:22] VITALS: BP 145/92
== END 2022-07-11 06:22 | disposition home or self-care (01) ==
LOC: ED 05:23
DX: M26.601 Right temporomandibular joint disorder, unspecified (principal); F17.200 Nicotine dependence, unspecified, uncomplicated
CPT/HCPCS: 96372; 99283

== ENCOUNTER 2023-07-20 06:40 | Outpatient (CLI) | payer MEDICARE, MEDICAID | END 2023-07-20 23:59 | disposition critical access hospital (66) | LOC: EMS 06:40 | DX: R52 Pain, unspecified (principal); R19.7 Diarrhea, unspecified | CPT/HCPCS: A0425; A0429 ==

== ENCOUNTER 2023-07-20 06:56 | Emergency (ER) | payer MEDICARE, MEDICAID ==
--- NOTE | 2023-07-20 07:41 | ED Physician Documentation ---
History of Present Illness - Stated complaint Stated Complaint: DIARRHEA - Chief complaint Chief Complaint: Abd Pain - History obtained from History obtained from: Patient - Additonal information Additional information: Patient is a 47-year-old female with a history of rheumatoid arthritis who was picked up from this been caf with reports of diarrhea for the past 4 days. Patient states that she has been having loose watery stools with at least 5/day. Has not noticed any blood. Has nausea but no vomiting. Feels body aches. Last rheumatoid infusion was on July 10. Reports recent blood work showed that her white count was low around 3.6 and hemoglobin was 7.1. She does have a history of anemia. Does not take any blood thinners. Denies any recent antibiotic use. No fevers. Unknown of any sick contacts. Review of Systems Constitutional: denies: Fever Cardiac: denies: Chest pain / pressure Respiratory: denies: Dyspnea GI: reports: Abdominal Pain (Cramping), Nausea, Diarrhea. 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 : None HEENT: None Psych: None Musculoskeletal: Rheumatoid arthritis, Chronic back pain Derm: None - Past Surgical History Past Surgical History: Yes Ortho: Spine surgery, Other - Present Medications Home Medications: Ambulatory Orders Medication Instructions Recorded Confirmed No Known Home Medications 07/20/23 07/20/23 - Allergies Allergies/Adverse Reactions: Allergies Allergy/AdvReac Type Severity Reaction Status Date / Time No Known Drug Allergies Allergy Verified 07/20/23 07:09 - Social History Does the pt smoke?: Yes Smoking Status: Current every day smoker Does the pt drink ETOH?: Yes Does the pt have substance abuse?: No - Immunizations Immunizations are current?: Yes - POLST Patient has POLST: No PD ED PE NORMAL - General General: Alert and oriented X 3, No acute distress, Well developed/nourished - HEENT HEENT: Atraumatic, Moist mucous membranes, Pharynx benign - Neck Neck: Supple, no meningeal sign - Cardiac Cardiac: RRR, Strong equal pulses - Respiratory Respiratory: No respiratory distress, Clear bilaterally - Abdomen Abdomen: Normal bowel sounds, Soft, Non tender, Non distended - Derm Derm: Warm and dry - Neuro Neuro: Normal speech Results - Vitals Vitals: Vital Signs - 24 hr 07/20/23 07/20/23 07:00 11:15 Temperature 36.2 C L 36.4 C L Heart Rate 93 90 Respiratory 16 17 Rate Blood Pressure 127/80 131/82 H O2 Saturation 98 97 Oxygen O2 Source Room air - Labs Labs: Laboratory Tests 07/20/23 07/20/23 07/20/23 07:43 07:43 10:18 WBC 4.3 L RBC 4.55 Hgb 8.1 L Hct 30.1 L MCV 66.2 L MCH 17.8 L MCHC 26.9 L RDW 20.6 H Plt Count 282 MPV 8.8 Neut # (Auto) 2.5 Lymph # (Auto) 1.2 L [place] # (Auto) 0.5 Eos # (Auto) 0.1 Baso # (Auto) 0.0 Absolute Nucleated RBC 0.00 Nucleated RBC % 0.0 Manual Slide Review Indicated WBC Morphology NORMAL APPEARANCE Platelet Estimate NORMAL (130-450,000) Platelet Morphology NORMAL APPEARANCE RBC Morph Micro Appear 1+ OVALOCYTES Sodium 134 L Potassium 3.6 Chloride 104 Carbon Dioxide 23 Anion Gap 7.0 BUN 9 Creatinine 0.6 Estimated GFR (MDRD) 107 Glucose 104 Calcium 8.7 Total Bilirubin 0.5 AST 7 L ALT 6 L Alkaline Phosphatase 54 Total Protein 6.9 Albumin 3.5 Globulin 3.4 Albumin/Globulin Ratio 1.0 Lipase < 10 L Urine HCG, Qual NEGATIVE PD Medical Decision Making - ED course Complexity details: reviewed results, re-evaluated patient, d/w patient ED course: Patient is a 47-year-old female presenting for evaluation of diarrhea and joint pains.Has a history of rheumatoid arthritis and receives Remicade infusions. Vital signs are stable. No significant abdominal tenderness. CBC, chemistries, hCG were obtained and reviewed. No symptoms to suggest UTI.Has a history of anemia and hemoglobin and white count are slightly improved from outpatient labs that patient shows me from July 10.Patient unable to give a stool sample. Small amount of stool was collected but there was a large amount of urine and patient was unable to give another Sample. Patient was given an oxycodone for her joint pains.Abdominal exam remains benign. Patient counseled on need for close follow-up with primary care provider as well as her economics consultant. Advised on concerning symptoms to return for. Departure - Departure Disposition: 01 Home, Self Care Clinical Impression: Diarrhea, Joint pain, Chronic anemia Condition: Stable Instructions: ED Diet Vomiting Diarrhea Comments: Please follow-up with your primary care doctor as well as your economics consultant. We were unable to collect a stool specimen to check it for infection here so I would recommend close follow-up with your primary care if you are still having diarrhea. You have chronic anemia which appears to be slightly better today than recent labs and your white count is also starting to improve. Continue with anti-inflammatories as needed for joint pain. Return to the ER with any worsening symptoms. Forms: PCP List Discharge Date/Time: 07/20/23 10:30
[2023-07-20] MEDS: SODIUM CHLORIDE 0.9% 1,000 ML IV STA (07:47)
[2023-07-20] MEDS: ONDANSETRON 4 MG/2 ML VIAL IVP STA (07:49)
[2023-07-20 07:59] LABS: BASOPHILS % (AUTO) 0.5 %; EOSINOPHILS # (AUTO) 0.1 10^3/uL (0.0-0.7); EOSINOPHILS % (AUTO) 2.5 %; HCT - HEMATOCRIT 30.1 % (37.0-47.0); HGB - HEMOGLOBIN 8.1 g/dL (12.0-16.0); LYMPHOCYTES # (AUTO) 1.2 10^3/uL (1.5-3.5); MEAN CORPUSCULAR HEMOGLOBIN 17.8 pg (27.0-31.0); MEAN CORPUSCULAR HGB CONC 26.9 g/dL (32.0-36.0); MEAN CORPUSCULAR VOLUME 66.2 fL (81.0-99.0); MEAN PLATELET VOLUME 8.8 fL (7.9-10.8); MONOCYTES # (AUTO) 0.5 10^3/uL (0.0-1.0); NEUTROPHILS # (AUTO) 2.5 10^3/uL (1.5-6.6); PLT - PLATELET COUNT 282 10^3/uL (130-450); RED BLOOD COUNT 4.55 10^6/uL (4.20-5.40); RED CELL DISTRIBUTION WIDTH 20.6 % (12.0-15.0); WHITE BLOOD COUNT 4.3 x10^3/uL (4.8-10.8)
[2023-07-20 08:00] LABS: SLIDE REVIEW? Indicated
[2023-07-20 08:06] LABS: ALBUMIN 3.5 g/dL (3.2-5.5); ALKALINE PHOSPHATASE 54 IU/L (42-121); ALT ALANINE AMINOTRANSFERASE 6 IU/L (10-60); AST ASPARTATE AMINOTRANSFERASE 7 IU/L (10-42); BILIRUBIN,TOTAL 0.5 mg/dL (0.2-1.0); BUN - BLOOD UREA NITROGEN 9 mg/dL (6-20); CALCIUM 8.7 mg/dL (8.5-10.3); CARBON DIOXIDE - CO2 23 mmol/L (21-32); CHLORIDE 104 mmol/L (101-111); CREATININE 0.6 mg/dL (0.6-1.3); GFR - MDRD 107 (>89); GLUCOSE 104 mg/dL (74-104); LIPASE < 10 U/L (11-82); POTASSIUM 3.6 mmol/L (3.5-4.5); SODIUM 134 mmol/L (135-145); TOTAL PROTEIN 6.9 g/dL (6.4-8.9)
[2023-07-20 08:22] LABS: PLATELET ESTIMATE, MANUAL NORMAL (130-450,000) (NORMAL); PLATELET MORPHOLOGY NORMAL APPEARANCE (NORMAL); WBC MORPHOLOGY (MULTIPLE) NORMAL APPEARANCE (NORMAL)
[2023-07-20] MEDS: oxyCODONE 5 MG TABLET PO STA (09:53)
[2023-07-20 10:25] LABS: HCG UR QUAL NEGATIVE
[2023-07-20 11:27] VITALS: BP 131/82; O2SAT 97
== END 2023-07-20 10:30 | disposition home or self-care (01) ==
LOC: EDUNIT# → ED 06:56
DX: R19.7 Diarrhea, unspecified (principal); M79.10 Myalgia, unspecified site; D64.9 Anemia, unspecified; M06.9 Rheumatoid arthritis, unspecified; F17.200 Nicotine dependence, unspecified, uncomplicated
CPT/HCPCS: 36415; 80053; 81025; 83690; 85025; 96361; 96374; 99284; A9270; 87045; 87046; 87427; 87493

== ENCOUNTER 2023-08-22 08:06 | Emergency (ER) | payer MEDICARE, MEDICAID ==
--- NOTE | 2023-08-22 08:30 | ED Physician Documentation ---
PD HPI BACK PAIN - Stated complaint Stated Complaint: BACK PX - Chief complaint Chief Complaint: Back Pain - History obtained from History obtained from: Patient - History of Present Illness Timing - onset: How many days ago (4) Timing - duration: Days (4) Timing - details: Gradual onset, Still present Location: Lower, Left Quality: Pain, Spasm Associated symptoms: No: Fever, Weakness, Numbness, Incontinent of urine Worsened by: Movement, Twisting, Palpation Contributing factors: No: Lifting, Twisting, Trauma Similar symptoms before: Diagnosis (chronic recurrent low back pain but has not had it this severe recent past.) Recently seen: Emergency Dept ([place] couple days ago with CT showing no acute fractures/etc. 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 : None HEENT: None Psych: None Musculoskeletal: Rheumatoid arthritis, Chronic back pain Derm: None - Past Surgical History Past Surgical History: Yes Ortho: Spine surgery, Other - Present Medications Home Medications: Ambulatory Orders Medication Instructions Recorded Confirmed Lidocaine Patch 5% [Lidoderm Patch] 1 patch TOP DAILY PRN #10 patch 08/22/23 Oxycodone HCl/Acetaminophen 1 each PO Q6H PRN #20 tablet 08/22/23 [Percocet 5-325 mg Tablet] methocarbamoL [Methocarbamol] 500 mg PO TID 08/22/23 08/22/23 methylPREDNISolone [Medrol Dose 1 each PO .PACKAGEINSTRUCTIONS 08/22/23 08/22/23 Pack] - Allergies Allergies/Adverse Reactions: Allergies Allergy/AdvReac Type Severity Reaction Status Date / Time No Known Drug Allergies Allergy Verified 08/22/23 08:24 - Social History Does the pt smoke?: Yes Smoking Status: Current every day smoker Does the pt drink ETOH?: Yes Does the pt have substance abuse?: No - Immunizations Immunizations are current?: Yes - POLST Patient has POLST: No PD ED PE NORMAL - Vitals Vital signs reviewed: Yes - General General: Alert and oriented X 3, Well developed/nourished, Other (appears in pain from low back.) - Back Back: No CVA TTP, No spinal TTP, Other (tender focally in left lower lumbar muscle,jsut above SI area. Amenable to trigger point injection with Kenalog and Bupivocaine. ) - Derm Derm: Normal color, Warm and dry - Neuro Neuro: Alert and oriented X 3, No motor deficit, Other (symmetric knee reflexes. Decreased sensation in feet generally which pt sates c/w neuropathy that she has. ) Results - Vitals Vitals: Vital Signs - 24 hr 08/22/23 08/22/23 08:21 10:10 Temperature 36.4 C L 36.4 C L Heart Rate 106 H 79 Respiratory 20 15 Rate Blood Pressure 152/84 H 138/71 H O2 Saturation 100 100 Oxygen O2 Source Room air PD Medical Decision Making - ED course Complexity details: reviewed old records (no DENIS form seen. No opioid pharmacy fills. ), considered differential (left low back pain without red flags. Hisotry of back pain similar but was worse today.), d/w patient Departure - Departure Disposition: Home, Self Care Clinical Impression: Low back pain Condition: Stable Record reviewed to determine appropriate education?: Yes Instructions: ED Low Back Pain Injury Prescriptions: Lidocaine Patch 5% [Lidoderm Patch] 1 patch TOP DAILY PRN #10 patch PRN Reason: pain Oxycodone HCl/Acetaminophen [Percocet 5-325 mg Tablet] 1 each PO Q6H PRN #20 tablet PRN Reason: pain Comments: Continue with the steroid pack started yesterday as well as the muscle relaxant. I did do an injection of a steroid a little long as well as a numbing medicine in the area that was most tender. Hopefully this will help through the day and add an anti-inflammatory effect more localized. You can use a lidocaine patch over the area as well and these can have good added effect in combination with the oral medicine. Tylenol 500 to 650 mg every 4-6 hours if needed for pain. Add in the short- term, oxycodone/acetaminophen every 6 hours if needed for worse pain. Recheck if not improving well over the next several days to week. I sent new prescriptions to preferred pharmacy. I am prescribing a short course of narcotic pain medication for you. These are potentially dangerous and addictive medications that should be used carefully. These medications may constipate you. Take an [id number] stool softener such as docusate twice daily with plenty of water while taking these medications. If you go 24 hours without a bowel movement, take [id number] MiraLAX, per package instructions. Do not drink or drive while taking these medications. If you received narcotic or sedating medications while in the emergency department do not drive for 24 hours. Store this medication in a safe, secure place and out of reach of children. It is a violation of federal law to give or sell this medication to another person or to use in a manner other than prescribed. The ED will not refill narcotic prescriptions, including prescriptions lost or stolen. You can dispose of unwanted medications at the [facility]'s office or at several pharmacies such as [facility]. Discharge Date/Time: 08/22/23 10:13
[2023-08-22 08:33] VITALS: O2SAT 100
[2023-08-22] MEDS ORDERED: BUPIVACAINE 0.5%-EPI 1:200000 PF 30 ML VIAL SUBQ ONE (08:40)
[2023-08-22] MEDS: TRIAMCINOLONE 40 MG/ML VIAL MC STA (08:53)
[2023-08-22] MEDS: HYDROmorphone 1 MG/ML CARPUJECT IM STA (08:54)
[2023-08-22] MEDS: KETOROLAC 30 MG/ML VIAL IM STA (08:54)
[2023-08-22] MEDS: BUPIVACAINE 0.5%-EPI 1:200000 PF 10 ML VIAL SUBQ ONE (09:06)
[2023-08-22 10:26] VITALS: BP 138/71
== END 2023-08-22 10:13 | disposition home or self-care (01) ==
LOC: ED 08:06
DX: M54.50 Low back pain, unspecified (principal); F17.200 Nicotine dependence, unspecified, uncomplicated
CPT/HCPCS: 20552; 96372; 99283; J1170

== ENCOUNTER 2023-10-21 03:09 | Outpatient (CLI) | payer MEDICARE, MEDICAID | END 2023-10-21 23:59 | disposition critical access hospital (66) | LOC: EMS 03:09 | DX: M19.042 Primary osteoarthritis, left hand (principal); M19.041 Primary osteoarthritis, right hand | CPT/HCPCS: A0425; A0429 ==

== ENCOUNTER 2023-10-21 03:19 | Emergency (ER) | payer MEDICARE, MEDICAID ==
[2023-10-21] MEDS: KETOROLAC 30 MG/ML VIAL IVP STA (03:52)
--- NOTE | 2023-10-21 03:52 | ED Physician Documentation ---
History of Present Illness - Stated complaint Stated Complaint: BODY PX - Chief complaint Chief Complaint: General - History obtained from History obtained from: Patient - History of Present Illness Timing: How many days ago (3) - Additonal information Additional information: 48-year-old Daija White is treated for rheumatoid arthritis with infusions [facility]. 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 She indicates to me that she has severe over all body arthritic pain and she had a similar incident about a month ago requiring a course of prednisone. She has some soreness to the jaw on the right side with a bad tooth that has not been fixed. She has a slight cough nonproductive no shortness of breath or chest pain Review of Systems Constitutional: denies: Fever Ears: denies: Ear pain Nose: reports: Congestion Throat: denies: Sore throat Cardiac: denies: Pedal edema, Calf pain Respiratory: reports: Cough. denies: Dyspnea, Wheezing GI: denies: Abdominal Pain, Nausea, Vomiting, Constipation, Diarrhea : denies: Dysuria, Frequency Skin: denies: Rash Musculoskeletal: reports: Back pain, Extremity pain, Joint pain, Joint swelling. denies: Neck pain Neurologic: denies: Generalized weakness, Focal weakness, Numbness PD PAST MEDICAL HISTORY - Past Medical History Cardiovascular: None Respiratory: None Neuro: Peripheral neuropathy Endocrine/Autoimmune: None GI: None LIAISON OFFICER: None : None HEENT: None Psych: None Musculoskeletal: Rheumatoid arthritis, Chronic back pain Derm: None - Past Surgical History Past Surgical History: Yes Ortho: Spine surgery, Other - Present Medications Home Medications: Ambulatory Orders Medication Instructions Recorded Confirmed Albuterol Sulfate [Proair 2 puffs IH Q4HR PRN 10/21/23 10/21/23 Digihaler] Amox/Clav 875/125 [Augmentin] 1 each PO BID #10 tablet 10/21/23 Ferrous Gluconate 324 mg PO DAILY #30 tablet 10/21/23 - Allergies Allergies/Adverse Reactions: Allergies Allergy/AdvReac Type Severity Reaction Status Date / Time No Known Drug Allergies Allergy Verified 10/21/23 03:21 - Social History Does the pt smoke?: Yes Smoking Status: Current every day smoker Does the pt drink ETOH?: Yes Does the pt have substance abuse?: No - Immunizations Immunizations are current?: Yes - POLST Patient has POLST: No PD ED PE NORMAL - Vitals Vital signs reviewed: Yes (Hypertensive) - General General: Alert and oriented X 3, Well developed/nourished, Other (48-year-old female moaning in pain with movement is flattened affect given multifocal button generator tone consistent with pain) - HEENT HEENT: Atraumatic, PERRL, EOMI, Ears normal, Moist mucous membranes, Pharynx benign, Other (Multiple carious teeth the right lower premolar is broken at the base and tender to the surrounding area. No fluctuance. Multiple teeth have been removed.) - Neck Neck: Supple, no meningeal sign, No bony TTP - Cardiac Cardiac: RRR, No murmur - Respiratory Respiratory: No respiratory distress, Clear bilaterally - Abdomen Abdomen: Normal bowel sounds, Soft, Non tender, Non distended, No organomegaly - Back Back: No CVA TTP, No spinal TTP - Derm Derm: Normal color, Warm and dry - Extremities Extremities: Other (Typical deformity of rheumatoid arthritis) - Neuro Neuro: Alert and oriented X 3, metal polisher 2-12 intact, No motor deficit, No sensory deficit, Normal speech Eye Opening: Spontaneous Motor: Obeys Commands Verbal: Oriented GCS Score: 15 - Psych Psych: Normal mood Results - Vitals Vitals: Vital Signs - 24 hr 10/21/23 10/21/23 10/21/23 03:21 03:54 03:55 Temperature 36.6 C 37.6 C Heart Rate 86 71 Heart Rate [ Monitoring electrodes] Respiratory 16 16 Rate Blood Pressure 146/87 H 126/81 H Blood Pressure [Right Brachial artery] O2 Saturation 99 100 10/21/23 10/21/23 10/21/23 04:34 05:23 06:05 Temperature 36.9 C 36.8 C Heart Rate 81 82 67 Heart Rate [ Monitoring electrodes] Respiratory 13 15 16 Rate Blood Pressure 140/81 H 103/73 127/72 Blood Pressure [Right Brachial artery] O2 Saturation 99 97 95 10/21/23 10/21/23 10/21/23 07:01 07:38 07:58 Temperature 36.1 C L 36.8 C Heart Rate 72 Heart Rate [ 68 72 Monitoring electrodes] Respiratory 15 15 14 Rate Blood Pressure 120/80 Blood Pressure 126/81 H 125/78 [Right Brachial artery] O2 Saturation 96 98 94 10/21/23 10/21/23 10:19 11:31 Temperature 37.0 C Heart Rate 76 Heart Rate [ 80 Monitoring electrodes] Respiratory 18 18 Rate Blood Pressure 122/82 H Blood Pressure 128/80 [Right Brachial artery] O2 Saturation 100 100 Oxygen O2 Source Room air - Labs Labs: Laboratory Tests 10/21/23 10/21/23 10/21/23 03:45 03:45 03:49 WBC 4.4 L RBC 4.08 L Hgb 6.8 L* Hct 26.1 L MCV 64.0 L MCH 16.7 L MCHC 26.1 L RDW 20.5 H Plt Count 309 MPV 9.3 Neut # (Auto) 1.9 Lymph # (Auto) 1.6 [place] # (Auto) 0.3 Eos # (Auto) 0.6 Baso # (Auto) 0.0 Absolute Nucleated RBC 0.00 Nucleated RBC % 0.0 Manual Slide Review Indicated Platelet Estimate INCREASED (>450,000) Platelet Morphology NORMAL APPEARANCE RBC Morph Micro Appear 1+ MICROCYTOSIS ESR Sodium 136 Potassium 4.0 Chloride 105 Carbon Dioxide 26 Anion Gap 5.0 L BUN 10 Creatinine 0.7 Estimated GFR (MDRD) 89 Glucose 98 Calcium 8.5 Total Bilirubin 0.3 AST 7 L ALT 5 L Alkaline Phosphatase 51 C-Reactive Protein 3.5 H Total Protein 6.7 Albumin 3.3 Globulin 3.4 Albumin/Globulin Ratio 1.0 Lipase 12 Urine Color Urine Clarity Urine pH Ur Specific [place] Urine Protein Urine Glucose (UA) Urine Ketones Urine Occult Blood Urine Nitrite Urine Bilirubin Urine Urobilinogen Ur Leukocyte Esterase Ur Microscopic Review Urine Culture Comments Nasal Adenovirus (PCR) Nasal B. parapertussis DNA (PCR) Nasal Coronavir 229E PCR Nasal Coronavir HKU1 PCR Nasal Coronavir NL63 PCR Nasal Coronavir OC43 PCR Nasal Enterovir/Rhinovir PCR Nasal Influenza B PCR Nasal Influenza A PCR Nasal Parainfluen 1 PCR Nasal Parainfluen 2 PCR Nasal Parainfluen 3 PCR Nasal Parainfluen 4 PCR Nasal RSV (PCR) Nasal B.pertussis DNA PCR Nasal C.pneumoniae (PCR) Hi Human Metapneumo PCR Nasal M.pneumoniae (PCR) Nasal SARS-CoV-2 (PCR) Blood Type Blood Type Recheck O POSITIVE Antibody Screen Crossmatch IS Only 10/21/23 10/21/23 10/21/23 03:50 03:57 05:35 WBC RBC Hgb Hct MCV MCH MCHC RDW Plt Count MPV Neut # (Auto) Lymph # (Auto) [place] # (Auto) Eos # (Auto) Baso # (Auto) Absolute Nucleated RBC Nucleated RBC % Manual Slide Review Platelet Estimate Platelet Morphology RBC Morph Micro Appear ESR 66 H Sodium Potassium Chloride Carbon Dioxide Anion Gap BUN Creatinine Estimated GFR (MDRD) Glucose Calcium Total Bilirubin AST ALT Alkaline Phosphatase C-Reactive Protein Total Protein Albumin Globulin Albumin/Globulin Ratio Lipase Urine Color Urine Clarity Urine pH Ur Specific [place] Urine Protein Urine Glucose (UA) Urine Ketones Urine Occult Blood Urine Nitrite Urine Bilirubin Urine Urobilinogen Ur Leukocyte Esterase Ur Microscopic Review Urine Culture Comments Nasal Adenovirus (PCR) NOT DETECTED Nasal B. parapertussis DNA (PCR) NOT DETECTED Nasal Coronavir 229E PCR NOT DETECTED Nasal Coronavir HKU1 PCR NOT DETECTED Nasal Coronavir NL63 PCR NOT DETECTED Nasal Coronavir OC43 PCR NOT DETECTED Nasal Enterovir/Rhinovir PCR NOT DETECTED Nasal Influenza B PCR NOT DETECTED Nasal Influenza A PCR NOT DETECTED Nasal Parainfluen 1 PCR NOT DETECTED Nasal Parainfluen 2 PCR NOT DETECTED Nasal Parainfluen 3 PCR NOT DETECTED Nasal Parainfluen 4 PCR NOT DETECTED Nasal RSV (PCR) NOT DETECTED Nasal B.pertussis DNA PCR NOT DETECTED Nasal C.pneumoniae (PCR) NOT DETECTED Hi Human Metapneumo PCR NOT DETECTED Nasal M.pneumoniae (PCR) NOT DETECTED Nasal SARS-CoV-2 (PCR) DETECTED A Blood Type O POSITIVE Blood Type Recheck Antibody Screen NEGATIVE Crossmatch IS Only See Detail 10/21/23 10:05 WBC RBC Hgb Hct MCV MCH MCHC RDW Plt Count MPV Neut # (Auto) Lymph # (Auto) [place] # (Auto) Eos # (Auto) Baso # (Auto) Absolute Nucleated RBC Nucleated RBC % Manual Slide Review Platelet Estimate Platelet Morphology RBC Morph Micro Appear ESR Sodium Potassium Chloride Carbon Dioxide Anion Gap BUN Creatinine Estimated GFR (MDRD) Glucose Calcium Total Bilirubin AST ALT Alkaline Phosphatase C-Reactive Protein Total Protein Albumin Globulin Albumin/Globulin Ratio Lipase Urine Color YELLOW Urine Clarity CLEAR Urine pH 7.0 Ur Specific [place] 1.015 Urine Protein NEGATIVE Urine Glucose (UA) NEGATIVE Urine Ketones NEGATIVE Urine Occult Blood NEGATIVE Urine Nitrite NEGATIVE Urine Bilirubin NEGATIVE Urine Urobilinogen 0.2 (NORMAL) Ur Leukocyte Esterase NEGATIVE Ur Microscopic Review NOT INDICATED Urine Culture Comments NOT INDICATED Nasal Adenovirus (PCR) Nasal B. parapertussis DNA (PCR) Nasal Coronavir 229E PCR Nasal Coronavir HKU1 PCR Nasal Coronavir NL63 PCR Nasal Coronavir OC43 PCR Nasal Enterovir/Rhinovir PCR Nasal Influenza B PCR Nasal Influenza A PCR Nasal Parainfluen 1 PCR Nasal Parainfluen 2 PCR Nasal Parainfluen 3 PCR Nasal Parainfluen 4 PCR Nasal RSV (PCR) Nasal B.pertussis DNA PCR Nasal C.pneumoniae (PCR) Hi Human Metapneumo PCR Nasal M.pneumoniae (PCR) Nasal SARS-CoV-2 (PCR) Blood Type Blood Type Recheck Antibody Screen Crossmatch IS Only - Rads (name of study) chest Relevant Findings:: Prelim report reviewed (Impression: Borderline to mild cardiomegaly hazy right basilar and left mid lower lung atelectasis/infiltrates.), EMP independent interpretation of test, See rad report PD Medical Decision Making - ED course Complexity details: reviewed old records, reviewed results, re-evaluated patient, considered differential, d/w patient Reviewed Lab Results: We reviewed a complete blood count showing a depressed white blood cell count of 4.4 a critically low hemoglobin of 6.8 and hematocrit of 26.1. Platelets were normal at 309,000 I compared this with prior laboratory work for this patient showing hemoglobin of 8.1 3 months ago and hematocrit of 30.1. Sedimentation rate was elevated at 66 and the C-reactive protein elevated at 3.5. The patient's nasal swab was positive for COVID. Otherwise her electrolytes kidney and liver function were normal. I interpreted these laboratory results to indicate the patient has worsening anemia that is now critical and she is symptomatic and will require transfusion. She does appear to have COVID and her inflammatory markers are elevated. ED course: 48-year-old female with a history of rheumatoid arthritis presents with overall body pain and is eventually found to be positive for COVID. Her symptoms however include exertional dyspnea and she has a critically low hemoglobin. She is not hypoxic and admission to the hospital for COVID is not warranted. She has evidence of infiltrate on CXR and she is administered IV rocephin and zithromax. She is symptomatic from anemia that has been chronic and worsening. She will require transfusion. She has had improvement in her overall body pain with the administration of 10 mg of dexamethasone and 30 mg of Toradol. She sees both rheumatology and hematology at [facility] and we have requested records. At shift change these records are still pending and the patient's transfusion has not started. Her care is turned over to Dr. Jose Leo anticipating a transfusion completion. Departure - Departure Disposition: 01 Home, Self Care Clinical Impression: COVID, Flare of rheumatoid arthritis Anemia Qualifiers: Anemia type: unspecified type Qualified Code(s): D64.9 - Anemia, unspecified Pneumonia Qualifiers: Pneumonia type: due to unspecified organism Laterality: bilateral Lung location: lower lobe of lung Qualified Code(s): J18.9 - Pneumonia, unspecified organism Condition: Stable Prescriptions: Amox/Clav 875/125 [Augmentin] 1 each PO BID #10 tablet Ferrous Gluconate 324 mg PO DAILY #30 tablet Comments: You did receive a 1 unit of blood transfusion. You have tested positive for COVID. I imagine much of your general symptoms are related to the viral infection. There was potential description of pneumonia on your x-ray which is most likely the viral COVID. However the first provider seen you on felt some antibiotics were appropriate in case. Stay well-hydrated. 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 I might suggest an iron supplement orally for now. Your rugby union footballer might consider iron infusions. 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 Forms: PCP List Discharge Date/Time: 10/21/23 11:31
[2023-10-21] MEDS: DEXAMETHASONE 10 MG/ML VIAL IVP STA (03:53)
[2023-10-21 04:01] LABS: BASOPHILS % (AUTO) 0.2 %; EOSINOPHILS # (AUTO) 0.6 10^3/uL (0.0-0.7); HCT - HEMATOCRIT 26.1 % (37.0-47.0); LYMPHOCYTES # (AUTO) 1.6 10^3/uL (1.5-3.5); LYMPHOCYTES % (AUTO) 36.8 %; MEAN CORPUSCULAR HEMOGLOBIN 16.7 pg (27.0-31.0); MEAN CORPUSCULAR HGB CONC 26.1 g/dL (32.0-36.0); MEAN PLATELET VOLUME 9.3 fL (7.9-10.8); MONOCYTES # (AUTO) 0.3 10^3/uL (0.0-1.0); MONOCYTES % (AUTO) 6.8 %; NEUTROPHILS # (AUTO) 1.9 10^3/uL (1.5-6.6); PLT - PLATELET COUNT 309 10^3/uL (130-450); RED BLOOD COUNT 4.08 10^6/uL (4.20-5.40); RED CELL DISTRIBUTION WIDTH 20.5 % (12.0-15.0); WHITE BLOOD COUNT 4.4 x10^3/uL (4.8-10.8)
[2023-10-21 04:29] LABS: ALBUMIN 3.3 g/dL (3.2-5.5); BILIRUBIN,TOTAL 0.3 mg/dL (0.2-1.0); CALCIUM 8.5 mg/dL (8.5-10.3); CREATININE 0.7 mg/dL (0.6-1.3); CRP - C-REACTIVE PROTEIN 3.5 mg/dL (<0.5); TOTAL PROTEIN 6.7 g/dL (6.4-8.9)
[2023-10-21 04:32] LABS: HGB - HEMOGLOBIN 6.8 g/dL (12.0-16.0); SLIDE REVIEW? Indicated
[2023-10-21 04:55] LABS: PLATELET ESTIMATE, MANUAL INCREASED (>450,000) (NORMAL); PLATELET MORPHOLOGY NORMAL APPEARANCE (NORMAL)
[2023-10-21 05:18] LABS: CORONAVIRUS 229E-RESP PCR NOT DETECTED; CORONAVIRUS HKU1-RESP PCR NOT DETECTED; CORONAVIRUS NL63-RESP PCR NOT DETECTED; CORONAVIRUS OC43-RESP PCR NOT DETECTED
[2023-10-21 05:19] LABS: B. PARAPERTUSSIS- RESP PCR PAN NOT DETECTED; B. PERTUSSIS- RESP PCR PANEL NOT DETECTED; C. PNEUMONIAE- RESP PCR PANEL NOT DETECTED; HUMAN METAPNEUMOVIRUS NOT DETECTED; INFLUENZA A- RESP PCR PANEL NOT DETECTED; INFLUENZA B - RESP PCR PANEL NOT DETECTED; M. PNEUMONIAE- RESP PCR PANEL NOT DETECTED; PARAINFLUENZA VIRUS 1 NOT DETECTED; PARAINFLUENZA VIRUS 2 NOT DETECTED; PARAINFLUENZA VIRUS 3 NOT DETECTED; PARAINFLUENZA VIRUS 4 NOT DETECTED; RHINOVIRUS/ENTEROVIRUS NOT DETECTED; RSV- RESP PCR PANEL NOT DETECTED; SARS-CoV-2 -RESP PCR PANEL DETECTED
[2023-10-21] MEDS: SODIUM CHLORIDE 0.9% 1,000 ML IV STA (07:27)
[2023-10-21] MEDS: cefTRIAXone 1 GM in SODIUM CHLORIDE 0.9% MINIBAG 100 ML IV STA (07:48)
--- NOTE | 2023-10-21 07:56 | XRAY Report ---
PROCEDURE: Chest 1V INDICATIONS: chest pain/exertional dyspnea TECHNIQUE: One view of the chest was acquired. COMPARISON: None. FINDINGS: Surgical changes and devices: None. Lungs and pleura: Hazy bilateral airspace opacities. Mediastinum: Mediastinal contours appear normal. Heart size is likely enlarged. Bones and chest wall: No suspicious bony lesions. Overlying soft tissues appear unremarkable. IMPRESSION: Hazy bilateral airspace opacities, probably atelectasis, less likely pneumonia. Findings are concordant with preliminary interpretation provided by [facility]. Reviewed by: Jac Odom MD on 10/21/2023 7:54 AM PDT Approved by: Jac Odom MD on 10/21/2023 7:54 AM PDT Station ID: [id number]
[2023-10-21] MEDS: AZITHROMYCIN INJ 500 MG in SODIUM CHLORIDE 0.9% 250 ML IV STA (08:16)
[2023-10-21 10:15] LABS: BILIRUBIN,URINE NEGATIVE (NEGATIVE); GLUCOSE, URINE (UA) NEGATIVE (NEGATIVE); KETONES,URINE (UA) NEGATIVE (NEGATIVE); LEUKOCYTE ESTERASE, URINE NEGATIVE (NEGATIVE); NITRITE,URINE NEGATIVE (NEGATIVE); OCCULT BLOOD,URINE NEGATIVE (NEGATIVE); PROTEIN,URINE NEGATIVE (NEGATIVE); UROBILINOGEN,URINE 0.2 (NORMAL) E.U./dL (NORMAL)
[2023-10-21 10:26] LABS: CLARITY,URINE CLEAR (CLEAR)
[2023-10-21 10:29] VITALS: O2SAT 100
--- NOTE | 2023-10-21 11:03 | ED Physician Documentation ---
ED Addendum - Addendum Addendum: 10/21/23 11:00 The patient received her transfusion. She is feeling okay. Still feels generally weak and tired and achy more likely from the COVID that she has had for the last 3 days. She is satting at 96% on room air. Vitals are good otherwise. She does have a bond manager that she sees and is working on reasons for her anemia. The patient can be discharged at this time. She has a ride. Disposition: Patient discharged home in stable condition Diagnoses: 1. Anemia 2. General weakness 3. COVID-19 infection 4. Infiltrate on x-ray
[2023-10-21 11:44] VITALS: BP 122/82
== END 2023-10-21 11:31 | disposition home or self-care (01) ==
LOC: EDUNIT# → ED 03:19
DX: U07.1 COVID-19 (principal); J18.9 Pneumonia, unspecified organism; D64.9 Anemia, unspecified; M06.9 Rheumatoid arthritis, unspecified; F17.200 Nicotine dependence, unspecified, uncomplicated
CPT/HCPCS: 36415; 36430; 71045; 80053; 81003; 83690; 85025; 85651; 86140; 86850; 86900; 86901; 86920; 87040; 87633; 96365; 96366; 96368; 96375; 99284; 99285; P9016; 81001; 87086